=== PATIENT | female | born 1955 | race Caucasian/White ===

== ENCOUNTER 2023-02-20 11:34 | Inpatient (IN) | payer MEDICARE ==
[2023-02-20] MEDS ORDERED: HYDROmorphone 1 MG/ML 1 ML SYRINGE IVP STA ×2 (12:27→14:50)
--- NOTE | 2023-02-20 12:31 | ED ---
General Adult HPI - General Chief complaint: Back Pain/Injury Stated complaint: back pain Time Seen by Provider: 02/20/23 11:58 Source: patient, RN notes reviewed Mode of arrival: ambulatory Limitations: no limitations - History of Present Illness Initial comments: Patient is a pleasant 68-year-old female presenting to the emergency department with concerns with left upper flank/back pain. Onset of symptoms was 2 or 3 weeks ago. Patient finds it hard to get comfortable. Discomfort does increase with deep breaths. No cough or dyspnea. No history of similar symptoms. Superior no fever. No dysuria or hematuria. No constipation or diarrhea. No midline back pain. Patient does question if she pulled a muscle when she got out of the car at that point. - Related Data Allergies Allergy/AdvReac Type Severity Reaction Status Date / Time No Known Allergies Allergy Verified 02/20/23 11:46 Review of Systems ROS Statement: Those systems with pertinent positive or pertinent negative responses have been documented in the HPI. ROS Other: All systems not noted in ROS Statement are negative. Constitutional: Denies: fever Eyes: Denies: eye pain ENT: Denies: ear pain Respiratory: Denies: cough, dyspnea Cardiovascular: Denies: chest pain Endocrine: Denies: fatigue Gastrointestinal: Reports: abdominal pain (Left flank, upper) Musculoskeletal: Reports: as per HPI, back pain Skin: Denies: rash Neurological: Denies: weakness Past Medical History Past Medical History: No Reported History History of Any Multi-Drug Resistant Organisms: None Reported Past Surgical History: No Surgical Hx Reported Past Psychological History: No Psychological Hx Reported Smoking Status: Current some day smoker Past Alcohol Use History: Rare Past Drug Use History: None Reported General Exam Limitations: no limitations General appearance: alert, in no apparent distress Head exam: Present: normocephalic Eye exam: Present: normal appearance Neck exam: Present: normal inspection Respiratory exam: Present: normal lung sounds bilaterally Cardiovascular Exam: Present: regular rate, normal rhythm Expanded Peripheral pulses: 2+: Dorsalis Pedis (R), Dorsalis Pedis (L) GI/Abdominal exam: Present: soft, tenderness (Minimal tenderness left flank). Absent: distended Extremities exam: Present: normal inspection. Absent: pedal edema, calf te nderness Back exam: Present: CVA tenderness (L) Neurological exam: Present: alert Psychiatric exam: Present: normal affect, normal mood Skin exam: Present: normal color Course Vital Signs 02/20/23 02/20/23 11:44 14:58 Temperature 97.8 F Pulse Rate 107 H 80 Respiratory 18 18 Rate Blood Pressure 148/78 134/78 O2 Sat by Pulse 96 98 Oximetry Medical Decision Making - Medical Decision Making Was pt. sent in by a medical professional or institution ([facility], MSW, urgent care, hospital, or skilled nursing...) When possible be specific @ -No Did you speak to anyone other than the patient for history (EMS, parent, family, police, friend...)? What history was obtained from this source @ -Family is present and helps provide history including onset Did you review nursing and triage notes (agree or disagree)? Why? @ -I reviewed and agree with nursing and triage notes Were old charts reviewed (outside hosp., previous admission, EMS record, old EK G, old radiological studies, urgent care reports/EKG's, skilled nursing records)? Report findings @ -No old charts were reviewed Differential Diagnosis (chest pain, altered mental status, abdominal pain women, abdominal pain men, vaginal bleeding, weakness, fever, dyspnea, syncope, headache, dizziness, GI bleed, back pain, seizure, CVA, palpatations, mental health, musculoskeletal)? @ -Differential Dyspnea: Coronary syndrome, arrhythmia, tamponade, asthma, COPD, pulmonary embolism, pneumonia, pneumothorax, pulmonary effusion, anaphylaxis, diabetic ketoacidosis, flailed chest, pulmonary contusion, diaphragmatic rupture, anemia, neuromus cular, this is not meant to be an all-inclusive list. EKG interpreted by me (3pts min.). @ -As above X-rays interpreted by me (1pt min.). @ -Chest x-ray shows left effusion. CT interpreted by me (1pt min.). @ -Computed tomography scan shows large left effusion U/S interpreted by me (1pt. min.). @ -None done What testing was considered but not performed or refused? (CT, X-rays, U/S, labs)? Why? @ -None What meds were considered but not given or refused? Why? @ -None Did you discuss the management of the patient with other professionals (professionals i.e. WILL Wills, MSW, lab, RT, psych nurse, social services aide, watchguard, teacher, deck officer, case assembler)? Give summary @ -Case discussed with Dr. Dennis, who will admit covering hospital call. Was smoking cessation discussed for >3mins.? @ -No Was critical care preformed (if so, how long)? @ -32 meds critical care time. Were there social determinants of health that impacted care today? How? (Homelessness, low income, unemployed, alcoholism, drug addiction, transportation, low edu. Level, literacy, decrease access to med. care, [facility], rehab)? @ -No Was there de-escalation of care discussed even if they declined (Discuss DNR or withdrawal of care, Hospice)? DNR status @ -No What co-morbidities impacted this encounter? (DM, HTN, Smoking, COPD, CAD, Cancer, CVA, ARF, Chemo, Hep., AIDS, mental health diagnosis, sleep apnea, morbid obesity)? @ -None Was patient admitted / discharged? Hospital course, mention meds given and route, prescriptions, significant lab abnormalities, going to OR and other pertinent info. @ -Patient presents with left flank pain. Chest x-ray and CT concerning for large left effusion, uncertain etiology. There is potential for possible infection/pneumonia. SIRS criteria met. Blood culture and lactic acid have been ordered. IV antibiotics will be ordered. Patient will benefit from admission for pain control and pulmonary consult with probable thoracentesis. Undiagnosed new problem with uncertain prognosis? @ -No Drug Therapy requiring intensive monitoring for toxicity (Heparin, Nitro, Insulin, Cardizem)? @ -No Were any procedures done? @ -No Diagnosis/symptom? @ -Large left pleural effusion Acute, or Chronic, or Acute on Chronic? @ -Acute Uncomplicated (without systemic symptoms) or Complicated (systemic symptoms)? @ -default Side effects of treatment? @ -No Exacerbation, Progression, or Severe Exacerbation? @ -No Poses a threat to life or bodily function? How? (Chest pain, [place], [place], pneumonia, PE, COPD, DKA, ARF, appy, cholecystitis, CVA, Diverticulitis, Homicidal, Suicidal, threat to staff... and all critical care pts) @ -No - Lab Data Result diagrams: 02/20/23 12:52 02/20/23 13:46 Lab Results 02/20/23 02/20/23 02/20/23 Range/Units 12:52 12:52 13:46 WBC 39.9 H (3.8-10.6) k/uL RBC 4.55 (3.80-5.40) m/uL Hgb 13.2 (11.4-16.0) gm/dL Hct 40.5 (34.0-46.0) % MCV 89.0 (80.0-100.0) fL MCH 29.1 (25.0-35.0) pg MCHC 32.7 (31.0-37.0) g/dL RDW 12.8 (11.5-15.5) % Plt Count 767 H (150-450) k/uL MPV 8.2 Neutrophils % 94 % Lymphocytes % 3 % Monocytes % 2 % Eosinophils % 1 % Basophils % 0 % Neutrophils # 37.5 H (1.3-7.7) k/uL Lymphocytes # 1.1 (1.0-4.8) k/uL Monocytes # 0.6 (0-1.0) k/uL Eosinophils # 0.5 (0-0.7) k/uL Basophils # 0.0 (0-0.2) k/uL Manual Slide Review Performed PT 11.1 (10.0-12.5) sec INR 1.0 (<1.2) APTT 25.9 (22.0-30.0) sec D-Dimer 3.66 H (<0.60) mg/L FEU Sodium 136 L (137-145) mmol/L Potassium 3.8 (3.5-5.1) mmol/L Chloride 96 L (98-107) mmol/L Carbon Dioxide 23 (22-30) mmol/L Anion Gap 17 mmol/L BUN 18 H (7-17) mg/dL Creatinine 0.41 L (0.52-1.04) mg/dL Est GFR (CKD-EPI)AfAm >90 (>60 ml/min/1.73 sqM) Est GFR (CKD-EPI)NonAf >90 (>60 ml/min/1.73 sqM) Glucose 110 H (74-99) mg/dL Calcium 9.5 (8.4-10.2) mg/dL Total Bilirubin 0.7 (0.2-1.3) mg/dL AST 23 (14-36) U/L ALT 16 (4-34) U/L Alkaline Phosphatase 161 H (38-126) U/L Total Protein 6.9 (6.3-8.2) g/dL Albumin 3.5 (3.5-5.0) g/dL Amylase 43 (30-110) U/L Lipase 21 L (23-300) U/L Urine Color Urine Appearance (Clear) Urine pH (5.0-8.0) Ur Specific [place] (1.001-1.035) Urine Protein (Negative) Urine Glucose (UA) (Negative) Urine Ketones (Negative) Urine Blood (Negative) Urine Nitrite (Negative) Urine Bilirubin (Negative) Urine Urobilinogen (<2.0) mg/dL Ur Leukocyte Esterase (Negative) Urine RBC (0-5) /hpf Urine WBC (0-5) /hpf Ur Squamous Epith Cells (0-4) /hpf Hyaline Casts (0-2) /lpf Urine Mucus (None) /hpf 02/20/23 Range/Units 14:09 WBC (3.8-10.6) k/uL RBC (3.80-5.40) m/uL Hgb (11.4-16.0) gm/dL Hct (34.0-46.0) % MCV (80.0-100.0) fL MCH (25.0-35.0) pg MCHC (31.0-37.0) g/dL RDW (11.5-15.5) % Plt Count (150-450) k/uL MPV Neutrophils % % Lymphocytes % % Monocytes % % Eosinophils % % Basophils % % Neutrophils # (1.3-7.7) k/uL Lymphocytes # (1.0-4.8) k/uL Monocytes # (0-1.0) k/uL Eosinophils # (0-0.7) k/uL Basophils # (0-0.2) k/uL Manual Slide Review PT (10.0-12.5) sec INR (<1.2) APTT (22.0-30.0) sec D-Dimer (<0.60) mg/L FEU Sodium (137-145) mmol/L Potassium (3.5-5.1) mmol/L Chloride (98-107) mmol/L Carbon Dioxide (22-30) mmol/L Anion Gap mmol/L BUN (7-17) mg/dL Creatinine (0.52-1.04) mg/dL Est GFR (CKD-EPI)AfAm (>60 ml/min/1.73 sqM) Est GFR (CKD-EPI)NonAf (>60 ml/min/1.73 sqM) Glucose (74-99) mg/dL Calcium (8.4-10.2) mg/dL Total Bilirubin (0.2-1.3) mg/dL AST (14-36) U/L ALT (4-34) U/L Alkaline Phosphatase (38-126) U/L Total Protein (6.3-8.2) g/dL Albumin (3.5-5.0) g/dL Amylase (30-110) U/L Lipase (23-300) U/L Urine Color Dark Brown Urine Appearance Cloudy H (Clear) Urine pH 6.0 (5.0-8.0) Ur Specific [place] 1.050 H (1.001-1.035) Urine Protein 2+ H (Negative) Urine Glucose (UA) Negative (Negative) Urine Ketones 2+ H (Negative) Urine Blood Small H (Negative) Urine Nitrite Negative (Negative) Urine Bilirubin 1+ H (Negative) Urine Urobilinogen 8.0 (<2.0) mg/dL Ur Leukocyte Esterase Negative (Negative) Urine RBC 11 H (0-5) /hpf Urine WBC 6 H (0-5) /hpf Ur Squamous Epith Cells 2 (0-4) /hpf Hyaline Casts 22 H (0-2) /lpf Urine Mucus Many H (None) /hpf Critical Care Time Critical Care Time: Yes Total Critical Care Time: 32 Disposition Clinical Impression: Pleural effusion on left Disposition: ADMITTED IP TO THIS HOSP Condition: Serious Is patient prescribed a controlled substance at d/c from ED?: No Referrals: None,Stated [Primary Care Provider] - 1-2 days Time of Disposition: 16:30
[2023-02-20 13:05] LABS: Basophils % (A) 0 %; Eosinophils # (A) 0.5 k/uL (0-0.7); Eosinophils % (A) 1 %; HCT 40.5 % (34.0-46.0); HGB 13.2 gm/dL (11.4-16.0); Lymphocytes # (A) 1.1 k/uL (1.0-4.8); Lymphocytes % (A) 3 %; MCH 29.1 pg (25.0-35.0); MCHC 32.7 g/dL (31.0-37.0); Mean Platelet Volume 8.2; Monocytes # (A) 0.6 k/uL (0-1.0); Monocytes % (A) 2 %; Neutrophils # (A) 37.5 k/uL (1.3-7.7); Neutrophils % (A) 94 %; Platelet Count 767 k/uL (150-450); RBC 4.55 m/uL (3.80-5.40); RDW 12.8 % (11.5-15.5); WBC 39.9 k/uL (3.8-10.6)
--- NOTE | 2023-02-20 13:28 | XR ---
EXAMINATION TYPE: XR chest 2V DATE OF EXAM: 02/20/2023 COMPARISON: None HISTORY: 68-year-old female with abdominal pain TECHNIQUE: PA and lateral views FINDINGS: Suspected old left lateral seventh rib fracture deformity. However, there are prominent pleural paren chymal opacities throughout the left hemithorax including the medial and lateral upper lung and later al left base. Right lung and pleural space are relatively clear. Heart overall normal size. IMPRESSION: Extensive abnormal pleural parenchymal opacities throughout the left hemithorax, probable loculated o r complex moderate-sized pleural effusion. Underlying atelectasis and/or consolidation.
--- NOTE | 2023-02-20 13:32 | XR ---
EXAMINATION TYPE: XR KUB DATE OF EXAM: 02/20/2023 Comparison: None Clinical History: 68-year-old female abdominal pain Findings: No evidence for free intraperitoneal air. No dilated small bowel or air-fluid levels. No significant stool burden. The nonspecific calcifications in the right side of the pelvis, probably vascular and/or calcified ut erine fibroids. Impression: No evidence for free air or bowel obstruction. No significant stool burden.
[2023-02-20 13:56] LABS: Partial Thromboplastin Time 25.9 sec (22.0-30.0); Prothrombin Time 11.1 sec (10.0-12.5)
[2023-02-20 14:05] LABS: ALT 16 U/L (4-34); AST 23 U/L (14-36); African American GFR (CKD) >90 (>60 ml/min/1.73 sqM); Albumin 3.5 g/dL (3.5-5.0); Alkaline Phosphatase 161 U/L (38-126); Amylase 43 U/L (30-110); Anion Gap 17 mmol/L; Blood Urea Nitrogen 18 mg/dL (7-17); Calcium 9.5 mg/dL (8.4-10.2); Carbon Dioxide 23 mmol/L (22-30); Chloride 96 mmol/L (98-107); Glucose 110 mg/dL (74-99); Lipase 21 U/L (23-300); Non-African American GFR(CKD) >90 (>60 ml/min/1.73 sqM); Potassium 3.8 mmol/L (3.5-5.1); Sodium 136 mmol/L (137-145); Total Bilirubin 0.7 mg/dL (0.2-1.3); Total Protein 6.9 g/dL (6.3-8.2)
[2023-02-20 14:31] LABS: Appearance,Urine Cloudy (Clear); Bilirubin,Urine 1+ (Negative); Blood,Urine Small (Negative); Color,Urine Dark Brown; Glucose,Urine (UA) Negative (Negative); Hyaline Casts,Urine 22 /lpf (0-2); Ketones,Urine 2+ (Negative); Leukocyte Esterase,Urine Negative (Negative); Mucus,Urine Many /hpf; Nitrite,Urine Negative (Negative); Protein,Urine 2+ (Negative); RBC,Urine 11 /hpf (0-5); Squamous Epithelial Cell,Urine 2 /hpf (0-4); WBC,Urine 6 /hpf (0-5)
--- NOTE | 2023-02-20 15:42 | CT ---
EXAMINATION TYPE: CT angio chest DATE OF EXAM: 02/20/2023 COMPARISON: None HISTORY: 68-year-old female Lt side chest pain, elevated d-dimer TECHNIQUE: Contiguous axial scanning of the chest after the administration of 100 mL of Isovue 300. Coronal/sagittal MIP reconstructions performed. CT DLP: 745.1mGycm. Automatic exposure control utilized for a dose reduction. FINDINGS: The heart is normal size with trace pericardial fluid. No flattening of the interventricular septum o r reflux of contrast into the hepatic veins. Aorta normal caliber with mild sclerotic arch calcifications and bovine configuration to the aortic a rch. No thoracic lymphadenopathy identified. There is borderline adequate opacification of the pulmonary arterial system. Limitation due to breath ing motion especially on the left. No definite pulmonary embolus is seen. There is a large left pleural effusion. This results in left lower lobar collapse. Additional partial collapse of the inferior lingula. Prominent scalloped margins of the pleural effusion extending up to the apex suggests areas of partia l loculation. Minimal emphysematous change. Right lung and pleural space are clear. Abdomen reported separately. Bones: Mild degenerative disc disease midthoracic spine. IMPRESSION: 1. Borderline adequate contrast bolus. Further limitation due to motion especially on the left. No de finite pulmonary embolus. 2. Large left-sided pleural effusion causing complete left lower lobar collapse and near-complete sary gular collapse. 3. The effusion is complex with scalloped margins extending up to the apex suggesting areas of partia l loculation. 4. Background COPD with minimal emphysema. 5. Abdomen pelvis reported separately.
--- NOTE | 2023-02-20 15:48 | CT ---
EXAMINATION TYPE: CT abdomen pelvis w con DATE OF EXAM: 02/20/2023 COMPARISON: NONE HISTORY: 68-year-old female LT side pain TECHNIQUE: Contiguous axial scanning of the abdomen and pelvis following administration of 100 ml Omn ipaque 300 IV contrast. Delayed images through the kidneys and coronal/sagittal reconstructions perf ormed. CT DLP: 745.1 mGycm Automated exposure control for dose reduction was used. FINDINGS: Chest reported separately. On this phase of contrast, there may be some slight nodular pleu ral thickening along the posterior costophrenic angle. Underlying cyst versus focal fat anterior falciform ligament measuring 1.4 cm. No biliary ductal dila tation. Portal venous system is patent. Hydropic gallbladder 4.4 cm wide open without any surrounding inflammation. Likely due to fasting sta te. There is a nonspecific 2.0 cm right adrenal nodule. Mild thickening left adrenal gland without discre te nodularity. Tiny cortical renal cysts are noted. There is an indeterminate 9 mm partially exophytic cortical lesi on lateral midpole left kidney that could represent a complicated cyst or small solid mass and should be reassessed in a 6 month follow-up. Mild/moderate atherosclerotic calcifications infrarenal abdominal aorta and common iliac arteries. Sl ight fusiform dilatation infrarenal abdominal aorta to 2.1 cm but no nancy aneurysm. No dilated small bowel, free fluid, or free air. No mesenteric or retroperitoneal adenopathy. Scattered mild stool. Sigmoid diverticulosis. Wall thickening along the sigmoid colon but without any surrounding inflammation. Findings may reflect chronic diverticulitis. Bladder is nondistended. Uterus anteverted with a suspected 2.1 cm right fundal fibroid likely with a submucosal component. Subserosal exophytic partially calcified fibroid right fundus measuring 1.2 cm. Nonspecific calcifica tion right ovary measuring 1 cm, probably a phlebolith. Left ovary also visualized. No abnormal fluid collection in the pelvis or pelvic lymphadenopathy. Bones: Severe degenerative disc disease with sclerotic endplate change at L3-L5 levels and hypertroph ic facet arthropathy. There is moderate bilateral neuroforaminal stenosis at L4-L5. Also on the left at L3-L4. IMPRESSION: 1. CHEST REPORTED SEPARATELY. ON THIS PHASE OF CONTRAST IMAGING, THERE MAY BE SOME SUSPICIOUS NODULAR PLEURAL THICKENING AT THE LEFT POSTERIOR COSTOPHRENIC ANGLE. 2. Nonspecific 2 cm right adrenal nodule, statistically representing a benign adrenal adenoma. Six-mo [facility] follow-up CT with adrenal mass protocol recommended. 3. Indeterminate 9 mm cortical lesion lateral left kidney could represent a complicated cyst or a sma ll solid mass. This can also be reassessed at the six-month follow-up. 4. Sigmoid diverticulosis but with associated wall thickening. No surrounding inflammation. Suspect c hronic diverticulitis. 5. Fibroid uterus.
[2023-02-20] MEDS ORDERED: AZITHROMYCIN 500 MG in SODIUM CHLORIDE 0.9% 250 ML IVPB STA (16:30)
[2023-02-20] MEDS ORDERED: PNEUMONIA PROTOCOL UTILIZED 1 EACH MISC PO PRN (16:30)
[2023-02-20] MEDS ORDERED: HYDROmorphone 0.5 MG/0.5 ML SYRINGE IVP PRN (16:32)
[2023-02-20] MEDS: HYDROmorphone 1 MG/ML 1 ML SYRINGE IVP PRN ×2 (17:09→21:23)
[2023-02-20] MEDS: SODIUM CHLORIDE 0.9% 1,000 ML IV SCH (17:22)
[2023-02-21] MEDS: HYDROmorphone 1 MG/ML 1 ML SYRINGE IVP PRN ×5 (01:15→19:34)
--- NOTE | 2023-02-21 07:19 | XR ---
EXAMINATION TYPE: XR chest 1V DATE OF EXAM: 02/21/2023 5:44 AM CLINICAL INDICATION:Female, 68 years old with history of pneumonia; [facility] COMPARISON: Chest radiograph from one day prior. TECHNIQUE: XR chest 1V Frontal view of the chest. FINDINGS: Lungs/Pleura: Increased opacification of the left hemithorax most pronounced superiorly. There is loc ulated pleural effusion visualized. The right lung is relatively clear. Pulmonary vascularity: Unremarkable. Heart/mediastinum: Cardiomediastinal silhouette is partially obscured due to overlying and adjacent o pacities. Musculoskeletal: No acute osseous pathology. IMPRESSION: Loculated left pleural effusion with increased opacity in today's exam which could be partially due t o patient positioning.
[2023-02-21] MEDS: AZITHROMYCIN 500 MG TAB PO SCH (11:00)
--- NOTE | 2023-02-21 13:09 | P.HPIM ---
History of Present Illness H&P Date: 02/21/23 History of present illness; patient 78-year-old lady with no significant past m edical history was brought to the ER for left sided flank/back pain. Patient stated that she was all right 2-3 weeks back when he started noticing discomfort in the left flank region, there is also discomfort in the left side of her back. Patient initially thought that she might have pulled her muscle while getting out of the car. This discomfort was persistent. Patient also started noticing shortness of breath and was unable to take deep breaths. There was no complain of fever or chills. Patient denied any complaint of orthopnea or PND. There was no complain of swelling of feet. Patient denies any complaints of lethargy or weakness. Because of these symptoms, patient came to the ER Initial lab work done in the ER showed WBC 10.9, hemoglobin 13.2, platelet count 767, sodium 136, potassium 3.8, chloride 96, BUN 18, creatinine 0.41 glucose 110 AST 23, AST 16, UA done showed negative nitrite and leukocyte Estrace, urine WBC 6 EKG done in the ER showed heart rate of , no ST segment elevation or depression seen, no T-wave inversions seen. X-ray abdominal negative for evidence of free air or bowel obstruction Chest x-ray done in the ER showed extensive abnormal pleural parenchymal opacities throughout the left hemithorax probable loculated complex moderate sided pleural effusion. CTA chest done showed no PE, large left-sided pleural effusion. CT abdomen done showed nonspecific 2 cm right adrenal nodule. Indeterminate 9 mm cortical lesion left kidney could reflect a cyst versus mass Patient admitted to internal medicine service REVIEW OF SYSTEMS: CONSTITUTIONAL: No fever, no malaise, no fatigue. HEENT: No recent visual problems or hearing problems. Denied any sore throat. CARDIOVASCULAR: As mentioned in HPI PULMONARY: As mentioned in HPI GASTROINTESTINAL: No diarrhea, no nausea, no vomiting, no abdominal pain. NEUROLOGICAL: No headaches, no weakness, no numbness. HEMATOLOGICAL: Denies any bleeding or petechiae. GENITOURINARY: Denies any burning micturition, frequency, or urgency. MUSCULOSKELETAL/RHEUMATOLOGICAL: Denies any joint pain, swelling, or any muscle pain. ENDOCRINE: Denies any polyuria or polydipsia. The rest of the 14-point review of systems is negative. PHYSICAL EXAMINATION: GENERAL: The patient is alert and oriented x3, not in any acute distress. Well developed, well nourished. HEENT: Pupils are round and equally reacting to light. EOMI. No scleral icterus. No conjunctival pallor. Normocephalic, atraumatic. No pharyngeal erythema. No thyromegaly. CARDIOVASCULAR: S1 and S2 present. No murmurs, rubs, or gallops. PULMONARY: Diminished breath sounds at the left lung base, occasional crackles audible left-sided ABDOMEN: Soft, nontender, nondistended, normoactive bowel sounds. No palpable organomegaly. MUSCULOSKELETAL: No joint swelling or deformity. EXTREMITIES: No cyanosis, clubbing, or pedal edema. NEUROLOGICAL: Gross neurological examination did not reveal any focal deficits. SKIN: No rashes. Assessment and plan Bacterial pneumonia Large left pleural effusion 2 cm right adrenal nodule Indeterminate 9 mm cortical lesion left kidney Monitor vital signs Monitor CBC Monitor CMP Continue telemetry monitoring Follow-up on blood cultures Follow-up on sputum cultures Continue IV Rocephin and azithromycin Consult pulmonary Re: 2 cm right adrenal nodule needs outpatient six-month follow-up Re: Indeterminate 9 mm cortical lesion left kidney needs outpatient six-month follow-up Labs and medication were reviewed.. Continue same treatment. Continue with symptomatic treatment. Resume home medication. Monitor labs and vitals. DVT and GI prophylaxis. Further recommendations as per clinical course of the patient Dictation was produced using [employer] dictation software. please excuse any grammatical, word or spelling errors. Past Medical History Past Medical History: No Reported History History of Any Multi-Drug Resistant Organisms: None Reported Past Surgical History: No Surgical Hx Reported Past Psychological History: No Psychological Hx Reported Smoking Status: Current some day smoker Past Alcohol Use History: Rare Past Drug Use History: None Reported Medications and Allergies Home Medications Medication Instructions Recorded Confirmed Type No Known Home Medications 02/20/23 02/20/23 History Allergies Allergy/AdvReac Type Severity Reaction Status Date / Time No Known Allergies Allergy Verified 02/20/23 16:50 Physical Exam Vitals: Vital Signs Temp Pulse Pulse Resp BP BP Pulse Ox 02/21/23 07:30 97.9 F 102 H 18 151/63 94 L 02/21/23 05:41 110 H 24 138/90 92 L 02/21/23 01:46 100 18 129/73 93 L 02/20/23 22:31 78 18 139/72 90 L 02/20/23 22:00 18 91 L 02/20/23 21:19 98 18 139/90 90 L 02/20/23 14:58 80 18 134/78 98 02/20/23 11:44 97.8 F 107 H 18 148/78 96 Results CBC & Chem 7: 02/20/23 12:52 02/20/23 13:46 Labs: Abnormal Lab Results - Last 24 Hours (Table) 02/20/23 02/20/23 02/20/23 Range/Units 12:52 12:52 13:46 WBC 39.9 H (3.8-10.6) k/uL Plt Count 767 H (150-450) k/uL Neutrophils # 37.5 H (1.3-7.7) k/uL D-Dimer 3.66 H (<0.60) mg/L FEU Sodium 136 L (137-145) mmol/L Chloride 96 L (98-107) mmol/L BUN 18 H (7-17) mg/dL Creatinine 0.41 L (0.52-1.04) mg/dL Glucose 110 H (74-99) mg/dL Alkaline Phosphatase 161 H (38-126) U/L Lipase 21 L (23-300) U/L Urine Appearance (Clear) Ur Specific [place] (1.001-1.035) Urine Protein (Negative) Urine Ketones (Negative) Urine Blood (Negative) Urine Bilirubin (Negative) Urine RBC (0-5) /hpf Urine WBC (0-5) /hpf Hyaline Casts (0-2) /lpf Urine Mucus (None) /hpf 02/20/23 Range/Units 14:09 WBC (3.8-10.6) k/uL Plt Count (150-450) k/uL Neutrophils # (1.3-7.7) k/uL D-Dimer (<0.60) mg/L FEU Sodium (137-145) mmol/L Chloride (98-107) mmol/L BUN (7-17) mg/dL Creatinine (0.52-1.04) mg/dL Glucose (74-99) mg/dL Alkaline Phosphatase (38-126) U/L Lipase (23-300) U/L Urine Appearance Cloudy H (Clear) Ur Specific [place] 1.050 H (1.001-1.035) Urine Protein 2+ H (Negative) Urine Ketones 2+ H (Negative) Urine Blood Small H (Negative) Urine Bilirubin 1+ H (Negative) Urine RBC 11 H (0-5) /hpf Urine WBC 6 H (0-5) /hpf Hyaline Casts 22 H (0-2) /lpf Urine Mucus Many H (None) /hpf
--- NOTE | 2023-02-21 15:10 | P.CNPUL ---
History of Present Illness Consult date: 02/21/23 Reason for consult: pleural effusion History of present illness: Pleasant 68-year-old female patient, coming in with pain across her left chest a nd some shortness of breath. This started approximately 1 weeks ago. The patient was having significant amount of pain in her left lung especially when taking deep breaths, and the patient was taken anti-inflammatory medications and she was putting heat pads which wasn't relieving her pain. Ultimately, improving got severe and she decided to come into the hospital for further evaluation. She has no active fever. She has some sweats at nighttime and her appetite is been poor. No hemoptysis. No aspiration. No previous episodes of pneumonia. She isn't on off cigarette smoker and currently she is smoking approximately 1 pack of cigarettes a week. Prior to that she was smoking 2 packs a week and she quit approximately 20 years ago. Subsequently, she has been in a closet smoker. No nausea. No emesis. No abdominal pain. No altered mentation. No fall. No trauma to her chest.D-dimer is at 3.66, sodium is at 136, potassium levels at 3.8, BUN is at 80 with a creatinine of 0.4, the white cell count is 39 with a hemoglobin of 13.2. Legionella urine antigen is negative. Blood cultures are still pending for now. Computed tomography scan of the chest was done and the patient was found to have a large left-sided pleural effusion with complete lobar collapse of the left lower lobe and partial collapse of the lingular segment. This is a complex effusion with some loculation apically. There was background emphysema also. No evidence of any pulmonary embolism. The contrast administration was suboptimal and limited evaluation due to motion. CAT scan of the abdomen and pelvis was also done that showed a nonspecific 2 cm right adrenal nodule. 9 mm cortical lesion in the left kidney, sigmoid diverticulosis and fibroid uterus. Review of Systems Constitutional: Reports fatigue, Reports poor appetite, Reports weakness Eyes: denies as per HPI, denies blurred vision, denies bulging eye, denies decreased vision, denies diplopia, denies discharge, denies dry eye, denies irritation, denies itching, denies pain, denies photophobia, denies loss of peripheral vision, denies loss of vision, denies tunnel vision/blind spots Ears: deny: decreased hearing, ear discharge, earache, tinnitus Ears, nose, mouth and throat: Reports as per HPI Breasts: absent: as per HPI, change in shape, gynecomastia, masses, nipple discharge, pain, skin changes, swelling Cardiovascular: Reports as per HPI, Reports chest pain, Reports dyspnea on exertion Respiratory: Reports as per HPI Gastrointestinal: Reports as per HPI Genitourinary: Reports as per HPI Menstruation: Reports as per HPI Musculoskeletal: Reports as per HPI Musculoskeletal: absent: ankle pain, ankle stiffness, ankle swelling Integumentary: Reports as per HPI Neurological: Reports as per HPI Psychiatric: Reports as per HPI Endocrine: Reports as per HPI Hematologic/Lymphatic: Reports as per HPI Allergic/Immunologic: Reports as per HPI Past Medical History Past Medical History: No Reported History History of Any Multi-Drug Resistant Organisms: None Reported Past Surgical History: No Surgical Hx Reported Past Psychological History: No Psychological Hx Reported Smoking Status: Current some day smoker Past Alcohol Use History: Rare Past Drug Use History: None Reported Medications and Allergies Home Medications Medication Instructions Recorded Confirmed Type No Known Home Medications 02/20/23 02/20/23 History Allergies Allergy/AdvReac Type Severity Reaction Status Date / Time No Known Allergies Allergy Verified 02/20/23 16:50 Physical Exam Vitals: Vital Signs Temp Pulse Pulse Resp BP BP Pulse Ox 02/21/23 14:30 98.8 F 97 18 149/74 96 02/21/23 07:30 97.9 F 102 H 18 151/63 94 L 02/21/23 05:41 110 H 24 138/90 92 L 02/21/23 01:46 100 18 129/73 93 L 02/20/23 22:31 78 18 139/72 90 L 02/20/23 22:00 18 91 L 02/20/23 21:19 98 18 139/90 90 L Intake and Output 02/20/23 02/21/23 02/21/23 22:59 06:59 14:59 Other: # Voids 1 Weight 49.895 kg Gen. appearance the patient is calm and comfortable not in acute distress she is currently on oxygen at 2 L Head exam was generally normal. There was no scleral icterus or corneal arcus. Mucous membranes were moist. Neck was supple and without jugular venous distension, thyromegaly, or carotid bruits. Carotids were easily palpable bilaterally. There was no adenopathy. Lungs sounds are diminished in the right and absent on the left with dullness to percussion consistent with lower effusion Cardiac exam revealed the PMI to be normally situated and sized. The rhythm was regular and no extrasystoles were noted during several minutes of auscultation. The first and second heart sounds were normal and physiologic splitting of the second heart sound was noted. There were no murmurs, rubs, clicks, or gallops. Abdominal exam revealed normal bowel sounds. The abdomen was soft, non-tender, and without masses, organomegaly, or appreciable enlargement of the abdominal aorta. Examination of the extremities revealed easily palpable radial, femoral and pedal pulses. There was no cyanosis, clubbing or edema. Examination of the skin revealed no evidence of significant rashes, suspicious appearing nevi or other concerning lesions. Neurologically, the patient is awake and alert and the patient does not have any focal neurological deficit. Cranial nerves are essentially intact. Results - Laboratory Findings CBC and BMP: 02/20/23 12:52 02/20/23 13:46 PT/INR, D-dimer PT 11.1 sec (10.0-12.5) 02/20/23 12:52 INR 1.0 (<1.2) 02/20/23 12:52 D-Dimer 3.66 mg/L FEU (<0.60) H 02/20/23 12:52 Abnormal lab findings: Abnormal Labs 02/20/23 02/20/23 02/20/23 12:52 12:52 13:46 WBC 39.9 H Plt Count 767 H Neutrophils # 37.5 H D-Dimer 3.66 H Sodium 136 L Chloride 96 L BUN 18 H Creatinine 0.41 L Glucose 110 H Alkaline Phosphatase 161 H Lipase 21 L Urine Appearance Ur Specific [place] Urine Protein Urine Ketones Urine Blood Urine Bilirubin Urine RBC Urine WBC Hyaline Casts Urine Mucus 02/20/23 14:09 WBC Plt Count Neutrophils # D-Dimer Sodium Chloride BUN Creatinine Glucose Alkaline Phosphatase Lipase Urine Appearance Cloudy H Ur Specific [place] 1.050 H Urine Protein 2+ H Urine Ketones 2+ H Urine Blood Small H Urine Bilirubin 1+ H Urine RBC 11 H Urine WBC 6 H Hyaline Casts 22 H Urine Mucus Many H - Diagnostic Findings Chest x-ray: image reviewed CT scan - chest: image reviewed Assessment and Plan Plan: Large left-sided pleural effusion, complex with some cardiac ablation, likely parapneumonic in nature Left lung pneumonia clinically suspected with development of parapneumonic effusion, likely bacterial Chest pain secondary to above Shortness of breath secondary to above Acute hypoxic respiratory failure secondary to above currently on 2 L of oxygen by nasal cannula Leukocytosis secondary to above COPD History of smoking Diverticulosis [place] nodule, 2 cm, likely benign Plan Continue Rocephin and Zithromax Check pro calcitonin level We'll perform a diagnostic and therapeutic thoracentesis of the left lung We'll send the pleural fluid for analysis Pain control We'll continue to follow
--- NOTE | 2023-02-21 15:21 | P.PCN ---
Date of Procedure: 02/21/23 Preoperative Diagnosis: Left-sided pleural effusion Postoperative Diagnosis: Empyema suspected Procedure(s) Performed: Thoracentesis Anesthesia: local Surgeon: Radha Byers Estimated Blood Loss (ml): 0 Pathology: other Condition: stable Disposition: floor Operative Findings: A time out was performed and the chest x-ray was reviewed, the appropriate side was confirmed and marked. My hands were washed immediately prior to the procedure. I wore a surgical cap, mask with protective eyewear, sterile gown and sterile gloves throughout the procedure. The patient was prepped and draped in a sterile manner using chlorhexidine scrub after the appropriate level was percussed and confirmed by ultrasound. 1% lidocaine was used to anesthesize the skin, subcutaneous tissue, superior aspect of the rib periosteum and parietal pleura. A finder needle was then introduced over the superior aspect of the rib to locate the pleural fluid; 2colored fluid was aspirated at a depth of approximately 2 cm. A 10-blade scalpel was used to jaskaran the skin at the insertion site. The [id number] needle was then introduced through the skin incision into the pleural space using negative aspiration pressure and the red colometric indicator to confirm appropriate positioning of the needle. The thoracentesis catheter was then threaded without difficulty. 1.2 L of turbid colored fluid was removed without difficulty. The fluid was highly suspicious for empyema. The catheter was then removed. No immediate complications were noted during the procedure. A post-procedure chest x-ray is pending at the time of this note. The fluid will be sent for studies. Estimated blood loss is 0cc
--- NOTE | 2023-02-21 15:47 | XR ---
EXAMINATION TYPE: XR chest 1V DATE OF EXAM: 02/21/2023 3:32 PM CLINICAL INDICATION:Female, 68 years old with history of post thoracentesis; [facility] COMPARISON: Chest radiographs from 02/21/2023. TECHNIQUE: XR chest 1V Frontal view of the chest. FINDINGS: Lungs/Pleura: Decrease in left pleural effusion left midlung opacities remain. There is no evidence o f pleural effusion, focal consolidation, or pneumothorax. Pulmonary vascularity: Unremarkable. Heart/mediastinum: Cardiomediastinal silhouette is unremarkable. Musculoskeletal: No acute osseous pathology. Other findings: None IMPRESSION: Improved aeration of the left lung with persistent left midlung airspace opacities and left pleural e ffusion. The right lung is clear. No pneumothorax.
[2023-02-21] MEDS: SODIUM CHLORIDE 0.9% 1,000 ML IV SCH (17:05)
[2023-02-21 20:18] LABS: T. Protein, Body Fluid Source Pleural Fluid; Total Protein, Body Fluid >3600 mg/dL
[2023-02-21 20:29] LABS: LDH, Body Fluid Source Pleural Fluid
[2023-02-21 20:31] LABS: Glucose, BF Source Pleural Fluid; Glucose, Body Fluid <2 mg/dL
[2023-02-21 21:08] LABS: Appearance,BF Cloudy (Clear)
[2023-02-22] MEDS: HYDROmorphone 1 MG/ML 1 ML SYRINGE IVP PRN ×4 (02:22→20:21)
[2023-02-22] MEDS: AZITHROMYCIN 500 MG TAB PO SCH (09:19)
--- NOTE | 2023-02-22 13:07 | CT ---
EXAMINATION TYPE: CT chest wo con CT DLP: 131.80 mGycm, Automated exposure control for dose reduction was used. DATE OF EXAM: 02/22/2023 7:43 AM COMPARISON: CTA chest 02/20/2023 . CLINICAL INDICATION:Female, 68 years old with history of post thoracentesis follow up; [facility], Post Thor acentesis, follow up TECHNIQUE: Multiple axial images were obtained through the chest. Sagittal and coronal reformats were created for review. Contrast used: mL of (None if empty) Oral contrast used: (None if empty) FINDINGS: Exam is limited without IV contrast. Moderate to large loculated left-sided pleural fluid collection shows perhaps slight decrease in size but probably not significant. There are are a few small bubbles of gas seen within the effusion post thoracentesis, otherwise no significant pneumothorax is seen. There is redemonstration of compressive atelectasis and collapse involving almost the entire left low er lobe with air bronchograms present, and a significant portion of the left upper lobe. In the aerat ed lungs is no definite new infiltrate. Mild dependent atelectasis on the right without sizable pleur al effusion. Mediastinal structures, chest wall, osseous structures, upper abdomen show no significant interval ch aniket. Small volume pericardial fluid again seen. IMPRESSION: 1. Moderate to large loculated left-sided pleural fluid collection shows perhaps slight decrease in size versus 02/20/2023 CT, but probably not significant. 2. A few small bubbles of gas seen within the effusion postthoracentesis, otherwise no significant p neumothorax. 3. Redemonstration of compressive atelectasis and collapse involving almost the entire left lower lo be, and a significant portion of the left upper lobe.
--- NOTE | 2023-02-22 13:25 | P.PN ---
Subjective Progress Note Date: 02/22/23 patient 78-year-old lady with no significant past medical history was brought to the ER for left sided flank/back pain. Patient stated that she was all right 2-3 weeks back when he started noticing discomfort in the left flank region, there is also discomfort in the left side of her back. Patient initially thought that she might have pulled her muscle while getting out of the car. This discomfort was persistent. Patient also started noticing shortness of breath and was unable to take deep breaths. There was no complain of fever or chills. Patient denied any complaint of orthopnea or PND. There was no complain of swelling of feet. Patient denies any complaints of lethargy or weakness. Because of these symptoms, patient came to the ER Initial lab work done in the ER showed WBC 10.9, hemoglobin 13.2, platelet count 767, sodium 136, potassium 3.8, chloride 96, BUN 18, creatinine 0.41 glucose 110 AST 23, AST 16, UA done showed negative nitrite and leukocyte Estrace, urine WBC 6 EKG done in the ER showed heart rate of , no ST segment elevation or depression seen, no T-wave inversions seen. X-ray abdominal negative for evidence of free air or bowel obstruction Chest x-ray done in the ER showed extensive abnormal pleural parenchymal opacities throughout the left hemithorax probable loculated complex moderate sided pleural effusion. CTA chest done showed no PE, large left-sided pleural effusion. CT abdomen done showed nonspecific 2 cm right adrenal nodule. Indeterminate 9 mm cortical lesion left kidney could reflect a cyst versus mass Patient admitted to internal medicine service REVIEW OF SYSTEMS: CONSTITUTIONAL: No fever, no malaise,. CARDIOVASCULAR: No chest pain, no palpitations, no syncope. PULMONARY: No shortness of breath, no cough, GASTROINTESTINAL: No diarrhea, no nausea, no vomiting, no abdominal pain. NEUROLOGICAL: No headaches, no weakness, PHYSICAL EXAMINATION: GENERAL: The patient is alert and oriented x3, not in any acute distress. Well developed, well nourished. HEENT: Pupils are round and equally reacting to light. EOMI. No scleral icterus. No conjunctival pallor. Normocephalic, atraumatic. No pharyngeal erythema. No thyromegaly. CARDIOVASCULAR: S1 and S2 present. No murmurs, rubs, or gallops. PULMONARY: Diminished breath sounds at the left lung base, occasional crackles audible left-sided ABDOMEN: Soft, nontender, nondistended, normoactive bowel sounds. No palpable organomegaly. MUSCULOSKELETAL: No joint swelling or deformity. EXTREMITIES: No cyanosis, clubbing, or pedal edema. NEUROLOGICAL: Gross neurological examination did not reveal any focal deficits. SKIN: No rashes. Assessment and plan Bacterial pneumonia Empyema Large left pleural effusion 2 cm right adrenal nodule Indeterminate 9 mm cortical lesion left kidney Monitor vital signs Monitor CBC Monitor CMP Continue telemetry monitoring Follow-up on blood cultures Follow-up on sputum cultures Continue IV Rocephin and azithromycin Pulmonology evaluated the patient, status post thoracentesis of left side the removal of 1.2 L of fluid, cultures pending ID following IR consulted Re: 2 cm right adrenal nodule needs outpatient six-month follow-up Re: Indeterminate 9 mm cortical lesion left kidney needs outpatient six-month follow-up Labs and medication were reviewed.. Continue same treatment. Continue with symptomatic treatment. Resume home medication. Monitor labs and vitals. DVT and GI prophylaxis. Further recommendations as per clinical course of the patient Dictation was produced using [employer] dictation software. please excuse any grammatical, word or spelling errors. Objective - Vital Signs Vital signs: Vital Signs Temp 97.9 F 02/22/23 07:00 Pulse 91 02/22/23 07:00 Resp 18 02/22/23 07:00 BP 139/81 02/22/23 07:00 Pulse Ox 96 02/22/23 08:26 FiO2 Intake & Output 02/21/23 02/22/23 02/22/23 18:59 06:59 18:59 Weight 49.895 kg Other: # Voids 1 1 - Labs CBC & Chem 7: 02/20/23 12:52 02/20/23 13:46 Labs: Abnormal Lab Results - Last 24 Hours (Table) 02/21/23 Range/Units 15:21 Fluid Appearance Cloudy A (Clear) Microbiology - Last 24 Hours (Table) 02/20/23 17:15 Blood Culture - Preliminary Blood 02/20/23 17:00 Blood Culture - Preliminary Blood
--- NOTE | 2023-02-22 14:13 | P.PN ---
Subjective Progress Note Date: 02/22/23 Pleasant 68-year-old female patient, coming in with pain across her left chest and some shortness of breath. This started approximately 1 weeks ago. The patient was having significant amount of pain in her left lung especially when taking deep breaths, and the patient was taken anti-inflammatory medications and she was putting heat pads which wasn't relieving her pain. Ultimately, improving got severe and she decided to come into the hospital for further evaluation. She has no active fever. She has some sweats at nighttime and her appetite is been poor. No hemoptysis. No aspiration. No previous episodes of pneumonia. She isn't on off cigarette smoker and currently she is smoking approximately 1 pack of cigarettes a week. Prior to that she was smoking 2 packs a week and she quit approximately 20 years ago. Subsequently, she has been in a closet smoker. No nausea. No emesis. No abdominal pain. No altered mentation. No fall. No trauma to her chest.D-dimer is at 3.66, sodium is at 136, potassium levels at 3.8, BUN is at 80 with a creatinine of 0.4, the white cell count is 39 with a hemoglobin of 13.2. Legionella urine antigen is negative. Blood cultures are still pending for now. Computed tomography scan of the chest was done and the patient was found to have a large left-sided pleural effusion with complete lobar collapse of the left lower lobe and partial collapse of the lingular segment. This is a complex effusion with some loculation apically. There was background emphysema also. No evidence of any pulmonary embolism. The contrast administration was suboptimal and limited evaluation due to motion. CAT scan of the abdomen and pelvis was also done that showed a nonspecific 2 cm right adrenal nodule. 9 mm cortical lesion in the left kidney, sigmoid diverticulosis and fibroid uterus. On today's evaluation of 02/22/2023, the patient is much improved compared to yesterday. I performed a thoracentesis on her yesterday and I removed approximately 1.1 L of turbid cloudy fluid from the left lung. The patient's fluid is an exudate with elevated protein and elevated LDH. Is accompanied. Parapneumonic effusion. Fluid cytology still pending for now. Currently the patient is improved. At follow-up CAT scan of the chest was obtained and the patient shows interval decrease in left-sided pleural effusion. There is some residual left-sided pleural effusion and the left lung base which is somewhat operated and the patient may benefit from ultrasound-guided thoracentesis. As such, interventional radiology will be consulted. Clinically over the patient is improved. The patient continues to have some atelectatic changes in the left lung along with consolidation and the patient remains on broad-spectrum antibiotics. Follow up labs are still pending. Pleural fluid cultures also pending. Objective - Vital Signs Vital signs: Vital Signs Temp 97.9 F 02/22/23 07:00 Pulse 91 02/22/23 07:00 Resp 18 02/22/23 07:00 BP 139/81 02/22/23 07:00 Pulse Ox 96 02/22/23 08:26 FiO2 Intake & Output 02/21/23 02/22/23 02/22/23 18:59 06:59 18:59 Weight 49.895 kg Other: # Voids 1 1 - Exam Gen. appearance the patient is calm and comfortable not in acute distress she is currently on oxygen at 2 L Head exam was generally normal. There was no scleral icterus or corneal arcus. Mucous membranes were moist. Neck was supple and without jugular venous distension, thyromegaly, or carotid bruits. Carotids were easily palpable bilaterally. There was no adenopathy. Lungs sounds are diminished in the right and absent on the left with dullness to percussion consistent with lower effusion, and breath sounds are improved following thoracentesis was performed earlier. Cardiac exam revealed the PMI to be normally situated and sized. The rhythm was regular and no extrasystoles were noted during several minutes of auscultation. The first and second heart sounds were normal and physiologic splitting of the second heart sound was noted. There were no murmurs, rubs, clicks, or gallops. Abdominal exam revealed normal bowel sounds. The abdomen was soft, non-tender, and without masses, organomegaly, or appreciable enlargement of the abdominal aorta. Examination of the extremities revealed easily palpable radial, femoral and pedal pulses. There was no cyanosis, clubbing or edema. Examination of the skin revealed no evidence of significant rashes, suspicious appearing nevi or other concerning lesions. Neurologically, the patient is awake and alert and the patient does not have any focal neurological deficit. Cranial nerves are essentially intact. - Labs CBC & Chem 7: 02/20/23 12:52 12/25/23 13:46 Labs: Abnormal Lab Results - Last 24 Hours (Table) 02/21/23 Range/Units 15:21 Fluid Appearance Cloudy A (Clear) Microbiology - Last 24 Hours (Table) 02/21/23 15:21 Gram Stain - Preliminary Pleural Fluid 02/20/23 17:15 Blood Culture - Preliminary Blood 02/20/23 17:00 Blood Culture - Preliminary Blood Assessment and Plan Plan: Large left-sided pleural effusion, complex with some cardiac ablation, likely parapneumonic in nature, post thoracentesis with evacuation of 1.1 L of turbid exudate on the left lung, fluid cytology and cultures are still pending. Fo llow-up Of the Chest Shows Residual Pockets of Left-Sided Pleural Effusion Largest in the Left Lung Base. Patient Continues to Have Consolidation/Atelectasis of the Left Lung. Left lung pneumonia clinically suspected with development of parapneumonic effusion, likely bacterial Chest pain secondary to above, improved Shortness of breath secondary to above Acute hypoxic respiratory failure secondary to above currently on 2 L of oxygen by nasal cannula Leukocytosis secondary to above COPD History of smoking Diverticulosis [place] nodule, 2 cm, likely benign Plan Monitor the white cell count Awaiting pleural fluid cultures and cytology Interventional radiology to be consulted for another ultrasound-guided thoracentesis of the likely related pockets of fluid in the left lung base Continue Rocephin and Zithromax Pain control is improved considerably We'll continue to follow
--- NOTE | 2023-02-22 17:17 | P.CONS ---
History of Present Illness - Reason for Consult Consult date: 02/21/23 pneumonia/loculated effusion Requesting physician: Sergo Clark - Chief Complaint Left-sided chest pain shortness of breath x 3 weeks - History of Present Illness Patient is a 68-year-old female with no significant past medical history reported on the chart however the patient is a current everyday smoker did have significant history of smoking patient presenting to the hospital for evaluation of left-sided chest pain and increasing shortness of breath patient symptom has been getting worse for about 3 weeks and really worse over the last 1 week and get to the point that it was hard for her to take a deep breath patient describes the pain to be sharp intensity severe without any radiation the patient did have a mild cough which is dry in nature not bring up any sputum denies having any URI symptoms patient denies high-grade fever did have some chills with the symptoms the patient was evaluated on presentation to the hospital the patient was afebrile no fever has been recorded subsequently patient was mildly hypoxic with O2 sats of 90% on room air she is currently on 2 L nasal cannula oxygen patient did have a elevated white of 39.9 with a left shift creatinine was 0.41 liver exams are normal urine has been negative patient did have a CT angiogram of the chest that was negative for PE large left-sided effusion causing complete left lower lobe collapse and near complete lingular collapse there was a complex area in the apex suggestive of partial loculation patient also have CT of abdominal pelvis nonspecific right adrenal nodule left cortical lesion question of cyst versus solid mass patient was started on Rocephin and Zithromax infectious was consulted for further management of antibiotic therapy Review of Systems Positive point and negatives has been mentioned in the HPI, complete review of systems was performed and all other systems are negative Past Medical History Past Medical History: No Reported History History of Any Multi-Drug Resistant Organisms: None Reported Past Surgical History: No Surgical Hx Reported Past Psychological History: No Psychological Hx Reported Smoking Status: Current some day smoker Past Alcohol Use History: Rare Past Drug Use History: None Reported Medications and Allergies Home Medications Medication Instructions Recorded Confirmed Type Amoxic-Pot Clav 875-125Mg 1 tab PO Q12HR 14 Days #28 tab 02/25/23 Rx [Augmentin 875-125] Allergies Allergy/AdvReac Type Severity Reaction Status Date / Time No Known Allergies Allergy Verified 02/20/23 16:50 Physical Exam Vitals: Vital Signs Temp Pulse Pulse Resp BP BP Pulse Ox 02/21/23 07:30 97.9 F 102 H 18 151/63 94 L 02/21/23 05:41 110 H 24 138/90 92 L 02/21/23 01:46 100 18 129/73 93 L 02/20/23 22:31 78 18 139/72 90 L 02/20/23 22:00 18 91 L 02/20/23 21:19 98 18 139/90 90 L 02/20/23 14:58 80 18 134/78 98 02/20/23 11:44 97.8 F 107 H 18 148/78 96 GENERAL DESCRIPTION: Elderly female lying in bed, no distress. No tachypnea or accessory muscle of respiration use. HEENT: Shows Pallor , no scleral icterus. Oral mucous membrane is dry. No pharyngeal erythema or thrush NECK: Trachea central, no thyromegaly. LUNGS: Unlabored breathing. Decreased breath sound the base HEART: S1, S2, regular rate and rhythm. No loud murmur ABDOMEN: Soft, no tenderness , guarding or rigidity, no organomegaly EXTREMITIES: No edema of feet. SKIN: No rash, no masses palpable. NEUROLOGICAL: The patient is awake, alert, oriented x3, mood and affect normal. Results CBC & Chem 7: 02/25/23 11:35 02/24/23 06:00 Labs: Abnormal Lab Results - Last 24 Hours (Table) 02/20/23 02/20/23 02/20/23 Range/Units 12:52 12:52 13:46 WBC 39.9 H (3.8-10.6) k/uL Plt Count 767 H (150-450) k/uL Neutrophils # 37.5 H (1.3-7.7) k/uL D-Dimer 3.66 H (<0.60) mg/L FEU Sodium 136 L (137-145) mmol/L Chloride 96 L (98-107) mmol/L BUN 18 H (7-17) mg/dL Creatinine 0.41 L (0.52-1.04) mg/dL Glucose 110 H (74-99) mg/dL Alkaline Phosphatase 161 H (38-126) U/L Lipase 21 L (23-300) U/L Urine Appearance (Clear) Ur Specific [place] (1.001-1.035) Urine Protein (Negative) Urine Ketones (Negative) Urine Blood (Negative) Urine Bilirubin (Negative) Urine RBC (0-5) /hpf Urine WBC (0-5) /hpf Hyaline Casts (0-2) /lpf Urine Mucus (None) /hpf 02/20/23 Range/Units 14:09 WBC (3.8-10.6) k/uL Plt Count (150-450) k/uL Neutrophils # (1.3-7.7) k/uL D-Dimer (<0.60) mg/L FEU Sodium (137-145) mmol/L Chloride (98-107) mmol/L BUN (7-17) mg/dL Creatinine (0.52-1.04) mg/dL Glucose (74-99) mg/dL Alkaline Phosphatase (38-126) U/L Lipase (23-300) U/L Urine Appearance Cloudy H (Clear) Ur Specific [place] 1.050 H (1.001-1.035) Urine Protein 2+ H (Negative) Urine Ketones 2+ H (Negative) Urine Blood Small H (Negative) Urine Bilirubin 1+ H (Negative) Urine RBC 11 H (0-5) /hpf Urine WBC 6 H (0-5) /hpf Hyaline Casts 22 H (0-2) /lpf Urine Mucus Many H (None) /hpf Assessment and Plan (1) Leukocytosis Status: Acute Code(s): D72.829 - ELEVATED WHITE BLOOD CELL COUNT, UNSPECIFIED SNOMED Code(s): 880353293 (2) Parapneumonic effusion Status: Acute Code(s): J18.9 - PNEUMONIA, UNSPECIFIED ORGANISM; J91.8 - PLEURAL EFFUSION IN OTHER CONDITIONS CLASSIFIED ELSEWHERE SNOMED Code(s): 66139436 (3) Pleural effusion on left Status: Acute Code(s): J90 - PLEURAL EFFUSION, NOT ELSEWHERE CLASSIFIED SNOMED Code(s): 26574589 Plan: 1patient was in the hospital with left-sided chest pain increasing shortness of breath and this patient noticed to have a significant effusion to the left lower chest and evidence of compressive atelectasis versus consolidation patient did have elevated white count but not running any fever and no significant cough or sputum production high clinical suspicion for possible malignancy underlying pneumonia and parapneumonic effusion less likely but not entirely excluded 2await pulmonary evaluation for thoracocentesis fluid should be sent for analysis and culture 3we will check inflammatory markers 4continue with Rocephin and Zithromax Multiple questions concern were answered in layman terms We will follow on clinical condition and cultures to further adjust medication if needed Thank you for this consultation we will follow the patient along with you Dictation was produced using [employer] dictation software. please excuse any grammatical, word or spelling errors. Time with Patient: Greater than 30
--- NOTE | 2023-02-22 17:21 | P.PN ---
Subjective Progress Note Date: 02/22/23 Principal diagnosis: Reason for follow-up is left-sided effusion elevated white count Patient is a 68-year female presented to hospital with increasing shortness of breath and left-sided chest pain noticed to have a large left-sided effusion status post thoracocentesis also have elevated white count. On today's evaluation that is 02/22/2023, the patient denies having any fever or any chills patient is breathing more comfortably today and the left-sided chest pain has decreased in intensity, patient denies any nausea vomiting no abdominal pain no diarrhea. No CBC was done today patient did have a little fluid mostly bloody with a white count of 16,880 mostly PMN cultures are currently pending Objective - Vital Signs Vital signs: Vital Signs Temp 98.1 F 02/22/23 14:41 Pulse 96 02/22/23 14:41 Resp 18 02/22/23 14:41 BP 133/88 02/22/23 14:41 Pulse Ox 95 02/22/23 14:41 FiO2 Intake & Output 02/21/23 02/22/23 02/22/23 18:59 06:59 18:59 Intake Total 118 Balance 118 Weight 49.895 kg Intake: Oral 118 Other: # Voids 1 1 1 - Exam GENERAL DESCRIPTION: An elderly female lying in bed in no distress RESPIRATORY SYSTEM: Unlabored breathing , decreased breath sounds at bases HEART: S1 S2 regular rate and rhythm , ABDOMEN: Soft , no tenderness EXTREMITIES: No edema feet - Labs CBC & Chem 7: 02/20/23 12:52 02/20/23 13:46 Labs: Abnormal Lab Results - Last 24 Hours (Table) 02/21/23 Range/Units 15:21 Fluid Appearance Cloudy A (Clear) Microbiology - Last 24 Hours (Table) 02/21/23 15:21 Gram Stain - Preliminary Pleural Fluid 02/20/23 17:15 Blood Culture - Preliminary Blood 02/20/23 17:00 Blood Culture - Preliminary Blood Assessment and Plan (1) Leukocytosis Current Visit: Yes Status: Acute Code(s): D72.829 - ELEVATED WHITE BLOOD CELL COUNT, UNSPECIFIED SNOMED Code(s): 591108200 (2) Pleural effusion on left Current Visit: Yes Status: Acute Code(s): J90 - PLEURAL EFFUSION, NOT ELSEWHERE CLASSIFIED SNOMED Code(s): 95510368 Plan: 1patient was in the hospital with left-sided chest pain increasing shortness of breath and this patient noticed to have a significant effusion to the left lower chest and evidence of compressive atelectasis versus consolidation patient did have elevated white count but not running any fever and no significant cough or sputum production high clinical suspicion for possible malignancy underlying pneumonia and parapneumonic effusion less likely but not entirely excluded 2the patient status post thoracocentesis fluid did have a elevated white count mostly PMN with a cultures currently pending 3continue the patient on Rocephin while waiting for the culture to finalize and monitor clinical course closely Dictation was produced using [employer] dictation software. please excuse any grammatical, word or spelling errors. Time with Patient: Less than 30
[2023-02-22] MEDS: SODIUM CHLORIDE 0.9% 1,000 ML IV SCH (17:29)
[2023-02-23] MEDS: HYDROmorphone 1 MG/ML 1 ML SYRINGE IVP PRN ×5 (04:02→20:20)
[2023-02-23 08:47] LABS: Blood Urea Nitrogen 5.4 mg/dL (9.0-27.0); Chloride 98 mmol/L (96-109); Glucose 98 mg/dL (70-110); Potassium 3.7 mmol/L (3.5-5.5); Sodium 137 mmol/L (135-145)
[2023-02-23 08:48] LABS: ALT 10 U/L (8-44); AST 15 U/L (13-35); Albumin 2.8 g/dL (3.8-4.9); Albumin/Globulin Ratio 1.12 Ratio (1.60-3.17); Alkaline Phosphatase 133 U/L (41-126); Calcium 8.7 mg/dL (8.7-10.3); Carbon Dioxide 24.9 mmol/L (21.6-31.8); Globulin 2.5 g/dL (1.6-3.3); Total Bilirubin <0.2 mg/dL (0.3-1.2); Total Protein 5.3 g/dL (6.2-8.2)
--- NOTE | 2023-02-23 10:12 | US ---
EXAMINATION TYPE: US chest DATE OF EXAM: 02/23/2023 COMPARISON: CT, XR CLINICAL INDICATION: Female, 68 years old with history of please assess for left side fluid pocket; L eft pleural effusion TECHNIQUE: Targeted ultrasound of the posterior lower left hemithorax EXAM MEASUREMENTS: Left Pleural Effusion pocket size: 5.7 cm. Fluid appears loculated, internal echoes seen. Left skin surface to fluid distance: 3.3 cm Right side NOT marked for possible thoracentesis outside the dept. Left side marked for possible thoracentesis outside the dept. Fluid appears loculated. Pulmonologists are able to review the images in the patient?s EMR. IMPRESSIONS: Left side marked for possible thoracentesis with loculated fluid collection.
[2023-02-23 10:17] LABS: Basophils # (A) 0.05 X 10*3/uL (0.00-0.10); Basophils % (A) 0.2 %; Eosinophils # (A) 0.05 X 10*3/uL (0.04-0.35); Eosinophils % (A) 0.2 %; HCT 33.3 % (37.2-46.3); HGB 10.6 g/dL (12.0-15.0); Lymphocytes # (A) 1.17 X 10*3/uL (0.90-5.00); Lymphocytes % (A) 5.6 %; MCH 28.5 pg (27.0-32.0); MCHC 31.8 g/dL (32.0-37.0); MCV 89.5 FL (80.0-97.0); Mean Platelet Volume 10.6 FL (9.5-12.2); Monocytes # (A) 1.28 X 10*3/uL (0.20-1.00); Monocytes % (A) 6.2 %; NRBC Per 100 WBC 0 X 10*3/uL (0.00-0.01); Neutrophils # (A) 17.97 X 10*3/uL (1.80-7.70); Neutrophils % (A) 86.5 %; Platelet Count 772 X 10*3/uL (140-440); RBC 3.72 X 10*6/uL (4.10-5.20); RDW 13.8 % (11.5-14.5)
--- NOTE | 2023-02-23 12:39 | P.PN ---
Subjective Progress Note Date: 02/23/23 patient 78-year-old lady with no significant past medical history was brought to the ER for left sided flank/back pain. Patient stated that she was all right 2-3 weeks back when he started noticing discomfort in the left flank region, there is also discomfort in the left side of her back. Patient initially thought that she might have pulled her muscle while getting out of the car. This discomfort was persistent. Patient also started noticing shortness of breath and was unable to take deep breaths. There was no complain of fever or chills. Patient denied any complaint of orthopnea or PND. There was no complain of swelling of feet. Patient denies any complaints of lethargy or weakness. Because of these symptoms, patient came to the ER Initial lab work done in the ER showed WBC 10.9, hemoglobin 13.2, platelet count 767, sodium 136, potassium 3.8, chloride 96, BUN 18, creatinine 0.41 glucose 110 AST 23, AST 16, UA done showed negative nitrite and leukocyte Estrace, urine WBC 6 EKG done in the ER showed heart rate of , no ST segment elevation or depression seen, no T-wave inversions seen. X-ray abdominal negative for evidence of free air or bowel obstruction Chest x-ray done in the ER showed extensive abnormal pleural parenchymal opacities throughout the left hemithorax probable loculated complex moderate sided pleural effusion. CTA chest done showed no PE, large left-sided pleural effusion. CT abdomen done showed nonspecific 2 cm right adrenal nodule. Indeterminate 9 mm cortical lesion left kidney could reflect a cyst versus mass Patient admitted to internal medicine service 02/23. Patient seen and examined. Status post thoracentesis on 02/21 on left side with removal of 1.2 L of fluid,. States she feels much better. Back pain has improved. Able to take deeper breaths. IR has been consulted for further thoracentesis of left side REVIEW OF SYSTEMS: CONSTITUTIONAL: No fever, no malaise,. CARDIOVASCULAR: No chest pain, no palpitations, no syncope. PULMONARY: As mentioned above GASTROINTESTINAL: No diarrhea, no nausea, no vomiting, no abdominal pain. NEUROLOGICAL: No headaches, no weakness, PHYSICAL EXAMINATION: GENERAL: The patient is alert and oriented x3, not in any acute distress. Well developed, well nourished. HEENT: Pupils are round and equally reacting to light. EOMI. No scleral icterus. No conjunctival pallor. Normocephalic, atraumatic. No pharyngeal erythema. No thyromegaly. CARDIOVASCULAR: S1 and S2 present. No murmurs, rubs, or gallops. PULMONARY: Diminished breath sounds at the left lung base, occasional crackles audible left-sided ABDOMEN: Soft, nontender, nondistended, normoactive bowel sounds. No palpable organomegaly. MUSCULOSKELETAL: No joint swelling or deformity. EXTREMITIES: No cyanosis, clubbing, or pedal edema. NEUROLOGICAL: Gross neurological examination did not reveal any focal deficits. SKIN: No rashes. Assessment and plan Bacterial pneumonia Empyema Left parapneumonic effusion 2 cm right adrenal nodule Indeterminate 9 mm cortical lesion left kidney Monitor vital signs Monitor CBC Monitor CMP Continue telemetry monitoring Follow-up on blood cultures Follow-up on sputum cultures Continue IV Rocephin , completed course of azithromycin status post thoracentesis of left side the removal of 1.2 L of fluid, on 02/21 per pulmonary cultures pending ID following IR consulted, planning to repeat thoracentesis for loculated pleural effusion Re: 2 cm right adrenal nodule needs outpatient six-month follow-up Re: Indeterminate 9 mm cortical lesion left kidney needs outpatient six-month follow-up Labs and medication were reviewed.. Continue same treatment. Continue with sy mptomatic treatment. Resume home medication. Monitor labs and vitals. DVT and GI prophylaxis. Further recommendations as per clinical course of the patient Dictation was produced using [employer] dictation software. please excuse any grammatical, word or spelling errors. Objective - Vital Signs Vital signs: Vital Signs Temp 97.9 F 02/23/23 07:10 Pulse 90 02/23/23 08:00 Resp 17 02/23/23 08:00 BP 131/73 02/23/23 07:10 Pulse Ox 93 L 02/23/23 08:23 FiO2 Intake & Output 02/22/23 02/23/23 02/23/23 18:59 06:59 18:59 Intake Total 118 118 Balance 118 118 Intake: Oral 118 118 Other: Voiding Method Bedside Commode # Voids 1 2 - Labs CBC & Chem 7: 02/23/23 04:16 02/23/23 04:16 Labs: Abnormal Lab Results - Last 24 Hours (Table) 02/23/23 02/23/23 02/23/23 Range/Units 04:16 04:16 04:16 WBC 20.80 H (4.50-10.00) X 10*3/uL RBC 3.72 L (4.10-5.20) X 10*6/uL Hgb 10.6 L (12.0-15.0) g/dL Hct 33.3 L (37.2-46.3) % MCHC 31.8 L (32.0-37.0) g/dL Plt Count 772 H (140-440) X 10*3/uL Immature Gran # 0.28 H (0.00-0.04) X 10*3/uL Neutrophils # 17.97 H (1.80-7.70) X 10*3/uL Monocytes # 1.28 H (0.20-1.00) X 10*3/uL Anion Gap 14.10 H (4.00-12.00) mmol/L BUN 5.4 L (9.0-27.0) mg/dL Creatinine 0.3 L (0.6-1.5) mg/dL Total Bilirubin <0.2 L (0.3-1.2) mg/dL Alkaline Phosphatase 133 H (41-126) U/L C-Reactive Protein 30.50 H (0.00-0.80) mg/dL Total Protein 5.3 L (6.2-8.2) g/dL Albumin 2.8 L (3.8-4.9) g/dL Albumin/Globulin Ratio 1.12 L (1.60-3.17) Ratio Procalcitonin 1.53 H (0.02-0.09) ng/mL Microbiology - Last 24 Hours (Table) 02/20/23 17:15 Blood Culture - Preliminary Blood 02/20/23 17:00 Blood Culture - Preliminary Blood 02/21/23 15:21 Acid Fast Bacilli Smear - Preliminary Pleural Fluid 02/21/23 15:21 Gram Stain - Preliminary Pleural Fluid Body Fluid Culture - Preliminary
--- NOTE | 2023-02-23 15:23 | P.PN ---
Subjective Progress Note Date: 02/23/23 Pleasant 68-year-old female patient, coming in with pain across her left chest and some shortness of breath. This started approximately 1 weeks ago. The patient was having significant amount of pain in her left lung especially when taking deep breaths, and the patient was taken anti-inflammatory medications and she was putting heat pads which wasn't relieving her pain. Ultimately, improving got severe and she decided to come into the hospital for further evaluation. She has no active fever. She has some sweats at nighttime and her appetite is been poor. No hemoptysis. No aspiration. No previous episodes of pneumonia. She isn't on off cigarette smoker and currently she is smoking approximately 1 pack of cigarettes a week. Prior to that she was smoking 2 packs a week and she quit approximately 20 years ago. Subsequently, she has been in a closet smoker. No nausea. No emesis. No abdominal pain. No altered mentation. No fall. No trauma to her chest.D-dimer is at 3.66, sodium is at 136, potassium levels at 3.8, BUN is at 80 with a creatinine of 0.4, the white cell count is 39 with a hemoglobin of 13.2. Legionella urine antigen is negative. Blood cultures are still pending for now. Computed tomography scan of the chest was done and the patient was found to have a large left-sided pleural effusion with complete lobar collapse of the left lower lobe and partial collapse of the lingular segment. This is a complex effusion with some loculation apically. There was background emphysema also. No evidence of any pulmonary embolism. The contrast administration was suboptimal and limited evaluation due to motion. CAT scan of the abdomen and pelvis was also done that showed a nonspecific 2 cm right adrenal nodule. 9 mm cortical lesion in the left kidney, sigmoid diverticulosis and fibroid uterus. On today's evaluation of 02/22/2023, the patient is much improved compared to yesterday. I performed a thoracentesis on her yesterday and I removed approximately 1.1 L of turbid cloudy fluid from the left lung. The patient's fluid is an exudate with elevated protein and elevated LDH. Is accompanied. Parapneumonic effusion. Fluid cytology still pending for now. Currently the patient is improved. At follow-up CAT scan of the chest was obtained and the patient shows interval decrease in left-sided pleural effusion. There is some residual left-sided pleural effusion and the left lung base which is somewhat operated and the patient may benefit from ultrasound-guided thoracentesis. As such, interventional radiology will be consulted. Clinically over the patient is improved. The patient continues to have some atelectatic changes in the left lung along with consolidation and the patient remains on broad-spectrum antibiotics. Follow up labs are still pending. Pleural fluid cultures also pending. On today's evaluation of 02/15/2023, the patient is doing extremely well. As mentioned, there is a residual left-sided pleural effusion ultrasound marking was done and the patient is going to undergo an ultrasound-guided thoracentesis by interventional radiology today. Cultures from the pleural fluid was negative. The patient white cell count is down to 20.8. Hemoglobin is at 10.6. Electrodes are within normal limits and normal renal function. Pro-calcitonin level is at 1.53. She has no other new complaints patient remains on oxygen 2 L/m nasal cannula. She is afebrile and she is also hemodynamically stable. Objective - Vital Signs Vital signs: Vital Signs Temp 98.4 F 02/23/23 14:10 Pulse 91 02/23/23 14:59 Resp 16 02/23/23 14:59 BP 133/61 02/23/23 14:59 Pulse Ox 96 02/23/23 14:59 FiO2 Intake & Output 02/22/23 02/23/23 02/23/23 18:59 06:59 18:59 Intake Total 118 118 Balance 118 118 Intake: Oral 118 118 Other: Voiding Method Bedside Commode # Voids 1 2 3 - Exam Gen. appearance the patient is calm and comfortable not in acute distress she is currently on oxygen at 2 L Head exam was generally normal. There was no scleral icterus or corneal arcus. Mucous membranes were moist. Neck was supple and without jugular venous distension, thyromegaly, or carotid bruits. Carotids were easily palpable bilaterally. There was no adenopathy. Lungs sounds are diminished in the right and absent on the left with dullness to percussion consistent with lower effusion, and breath sounds are improved following thoracentesis was performed earlier. Cardiac exam revealed the PMI to be normally situated and sized. The rhythm was regular and no extrasystoles were noted during several minutes of auscultation. The first and second heart sounds were normal and physiologic splitting of the second heart sound was noted. There were no murmurs, rubs, clicks, or gallops. Abdominal exam revealed normal bowel sounds. The abdomen was soft, non-tender, and without masses, organomegaly, or appreciable enlargement of the abdominal aorta. Examination of the extremities revealed easily palpable radial, femoral and pedal pulses. There was no cyanosis, clubbing or edema. Examination of the skin revealed no evidence of significant rashes, suspicious appearing nevi or other concerning lesions. Neurologically, the patient is awake and alert and the patient does not have any focal neurological deficit. Cranial nerves are essentially intact. - Labs CBC & Chem 7: 02/23/23 04:16 02/23/23 04:16 Labs: Abnormal Lab Results - Last 24 Hours (Table) 02/23/23 02/23/23 02/23/23 Range/Units 04:16 04:16 04:16 WBC 20.80 H (4.50-10.00) X 10*3/uL RBC 3.72 L (4.10-5.20) X 10*6/uL Hgb 10.6 L (12.0-15.0) g/dL Hct 33.3 L (37.2-46.3) % MCHC 31.8 L (32.0-37.0) g/dL Plt Count 772 H (140-440) X 10*3/uL Immature Gran # 0.28 H (0.00-0.04) X 10*3/uL Neutrophils # 17.97 H (1.80-7.70) X 10*3/uL Monocytes # 1.28 H (0.20-1.00) X 10*3/uL Anion Gap 14.10 H (4.00-12.00) mmol/L BUN 5.4 L (9.0-27.0) mg/dL Creatinine 0.3 L (0.6-1.5) mg/dL Total Bilirubin <0.2 L (0.3-1.2) mg/dL Alkaline Phosphatase 133 H (41-126) U/L C-Reactive Protein 30.50 H (0.00-0.80) mg/dL Total Protein 5.3 L (6.2-8.2) g/dL Albumin 2.8 L (3.8-4.9) g/dL Albumin/Globulin Ratio 1.12 L (1.60-3.17) Ratio Procalcitonin 1.53 H (0.02-0.09) ng/mL Microbiology - Last 24 Hours (Table) 02/20/23 17:15 Blood Culture - Preliminary Blood 02/20/23 17:00 Blood Culture - Preliminary Blood 02/21/23 15:21 Acid Fast Bacilli Smear - Preliminary Pleural Fluid 02/21/23 15:21 Gram Stain - Preliminary Pleural Fluid Body Fluid Culture - Preliminary Assessment and Plan Plan: Large left-sided pleural effusion, complex with some cardiac ablation, likely parapneumonic in nature, post thoracentesis with evacuation of 1.1 L of turbid exudate on the left lung, fluid cytology and cultures are still pending. Follow-up Of the Chest Shows Residual Pockets of Left-Sided Pleural Effusion Largest in the Left Lung Base. Patient Continues to Have Consolidation/Atelectasis of the Left Lung. Ultrasound marking of the residual pleural fluid was done and the patient is going to undergo an interventional radiology ultrasound-guided thoracentesis of the left lung today to evacuate the rest of the pleural effusion. Left lung pneumonia clinically suspected with development of parapneumonic effusion, likely bacterial, pro-calcitonin level was elevated Acute hypoxic respiratory failure currently on 2 L Chest pain secondary to above, improved Shortness of breath secondary to above Acute hypoxic respiratory failure secondary to above currently on 2 L of oxygen by nasal cannula Leukocytosis secondary to above, improving COPD History of smoking Diverticulosis Adrenal nodule, 2 cm, likely benign Plan Monitor the white cell count, improving for now Awaiting pleural fluid cultures and cytology, negative for now Interventional radiology to be consulted for another ultrasound-guided thoracentesis of the likely related pockets of fluid in the left lung base, this is to be done today Continue Rocephin and Zithromax Pain control is improved considerably We'll continue to follow
--- NOTE | 2023-02-23 15:24 | US ---
EXAMINATION TYPE: US thoracentesis DATE OF EXAM: 02/23/2023 3:14 PM CLINICAL INDICATION:Female, 68 years old with history of pleural effusion. COMPARISON: 02/22/2023, 02/21/2023. ATTENDING: Dr. Jose L Lipscomb PROCEDURE: Informed consent was obtained. The risks of the procedure were extensively explained incl uding risk of pneumothorax and need for chest tube placement. Procedure was performed in the Ultraso und procedure suite. Ultrasound imaging of the chest demonstrates right pleural effusion. An approp riate access site was localized to the posterior right pleural space. Timeout was taken per protocol. The skin was prepped and draped in the usual sterile fashion and then locally anesthetized with 1% lidocaine. The pleural cavity was then accessed via a 5-Georgian one-step needle/catheter. Approximat марина 100 cc of clear straw-colored fluid was obtained. Postprocedural imaging of the chest demonstrate a decreased amount of pleural fluid. Patient tolerated procedure well without immediate complication. Hemostasis at the procedural site w as obtained with a sterile bandage placed. Immediate following the procedure, an inspiratory and expi ratory chest x-ray was reviewed. No post procedure pneumothorax was identified. The patient was monit ored in the holding area for approximately one hour following the procedure and was subsequently disc harged in stable condition. IMPRESSION: Ultrasound guided thoracentesis, with approximately 100 cc of clear straw-colored fluid drained. No immediate complications were evident.
--- NOTE | 2023-02-23 15:31 | XR ---
EXAMINATION TYPE: XR chest 1V portable DATE OF EXAM: 02/23/2023 Comparison: 02/21/2023 Clinical History: 68-year-old female post left thoracentesis Findings: Loculated moderate-sized left pleural effusion appears similar or slightly larger compared to 023. No appreciable pneumothorax. Patchy underlying opacity left mid and lower lung remains. Right kvng ng and pleural space clear. Some pleural fluid loculation along the medial left upper lobe as well, s imilar. Impression: Moderate loculated pleural effusion on the left similar to minimally increased from 02/21/2023. Under lying patchy atelectasis and/or consolidation left mid and lower lung redemonstrated. No appreciable pneumothorax.
--- NOTE | 2023-02-23 16:46 | P.PN ---
Subjective Progress Note Date: 02/23/23 Principal diagnosis: Reason for follow-up is left-sided effusion elevated white count Patient is a 68-year female presented to hospital with increasing shortness of breath and left-sided chest pain noticed to have a large left-sided effusion status post thoracocentesis also have elevated white count. On today's evaluation that is 02/23/2023 the patient remains to be afebrile, the patient is breathing comfortably on 2 L nasal cannula oxygen patient left-sided chest pain has decreased in intensity denies any worsening cough or sputum production no nausea vomiting and no diarrhea. The patient white count is down to 20.80 creatinine 0.3 pleural fluid cultures currently pending Objective - Vital Signs Vital signs: Vital Signs Temp 97.9 F 02/23/23 07:10 Pulse 90 02/23/23 08:00 Resp 17 02/23/23 08:00 BP 131/73 02/23/23 07:10 Pulse Ox 93 L 02/23/23 08:23 FiO2 Intake & Output 02/22/23 02/23/23 02/23/23 18:59 06:59 18:59 Intake Total 118 118 Balance 118 118 Intake: Oral 118 118 Other: Voiding Method Bedside Commode # Voids 1 2 - Exam GENERAL DESCRIPTION: An elderly female lying in bed in no distress RESPIRATORY SYSTEM: Unlabored breathing , decreased breath sounds at bases HEART: S1 S2 regular rate and rhythm , ABDOMEN: Soft , no tenderness EXTREMITIES: No edema feet - Labs CBC & Chem 7: 02/23/23 04:16 02/23/23 04:16 Labs: Abnormal Lab Results - Last 24 Hours (Table) 02/23/23 02/23/23 02/23/23 Range/Units 04:16 04:16 04:16 WBC 20.80 H (4.50-10.00) X 10*3/uL RBC 3.72 L (4.10-5.20) X 10*6/uL Hgb 10.6 L (12.0-15.0) g/dL Hct 33.3 L (37.2-46.3) % MCHC 31.8 L (32.0-37.0) g/dL Plt Count 772 H (140-440) X 10*3/uL Immature Gran # 0.28 H (0.00-0.04) X 10*3/uL Neutrophils # 17.97 H (1.80-7.70) X 10*3/uL Monocytes # 1.28 H (0.20-1.00) X 10*3/uL Anion Gap 14.10 H (4.00-12.00) mmol/L BUN 5.4 L (9.0-27.0) mg/dL Creatinine 0.3 L (0.6-1.5) mg/dL Total Bilirubin <0.2 L (0.3-1.2) mg/dL Alkaline Phosphatase 133 H (41-126) U/L C-Reactive Protein 30.50 H (0.00-0.80) mg/dL Total Protein 5.3 L (6.2-8.2) g/dL Albumin 2.8 L (3.8-4.9) g/dL Albumin/Globulin Ratio 1.12 L (1.60-3.17) Ratio Procalcitonin 1.53 H (0.02-0.09) ng/mL Microbiology - Last 24 Hours (Table) 02/20/23 17:15 Blood Culture - Preliminary Blood 02/20/23 17:00 Blood Culture - Preliminary Blood 02/21/23 15:21 Acid Fast Bacilli Smear - Preliminary Pleural Fluid 02/21/23 15:21 Gram Stain - Preliminary Pleural Fluid Body Fluid Culture - Preliminary Assessment and Plan (1) Leukocytosis Current Visit: Yes Status: Acute Code(s): D72.829 - ELEVATED WHITE BLOOD CELL COUNT, UNSPECIFIED SNOMED Code(s): 680821374 (2) Pleural effusion on left Current Visit: Yes Status: Acute Code(s): J90 - PLEURAL EFFUSION, NOT ELSEWHERE CLASSIFIED SNOMED Code(s): 94164035 Plan: 1patient was in the hospital with left-sided chest pain increasing shortness of breath and this patient noticed to have a significant effusion to the left lower chest and evidence of compressive atelectasis versus consolidation patient did have elevated white count but not running any fever and no significant cough or sputum production high clinical suspicion for possible malignancy underlying pneumonia and parapneumonic effusion less likely but not entirely excluded 2the patient status post thoracocentesis fluid did have a elevated white count mostly PMN with a cultures currently pending, The patient is scheduled for IR thoracocentesis left side this afternoon. 3patient to continue with Rocephin while waiting for the culture to finalize and monitor clinical course closely Dictation was produced using [employer] dictation software. please excuse any grammatical, word or spelling errors.
[2023-02-23] MEDS: SODIUM CHLORIDE 0.9% 1,000 ML IV SCH (16:59)
[2023-02-24] MEDS: HYDROmorphone 1 MG/ML 1 ML SYRINGE IVP PRN ×5 (02:53→20:33)
[2023-02-24 08:44] LABS: Basophils # (A) 0.06 X 10*3/uL (0.00-0.10); Basophils % (A) 0.4 %; Eosinophils # (A) 0.14 X 10*3/uL (0.04-0.35); Eosinophils % (A) 0.8 %; HCT 33.2 % (37.2-46.3); HGB 10.6 g/dL (12.0-15.0); Lymphocytes % (A) 10.1 %; MCH 28.7 pg (27.0-32.0); MCHC 31.9 g/dL (32.0-37.0); Mean Platelet Volume 10.1 FL (9.5-12.2); Monocytes # (A) 1.26 X 10*3/uL (0.20-1.00); Monocytes % (A) 7.5 %; NRBC Per 100 WBC 0 X 10*3/uL (0.00-0.01); Neutrophils # (A) 13.28 X 10*3/uL (1.80-7.70); Neutrophils % (A) 78.9 %; Platelet Count 682 X 10*3/uL (140-440); RBC 3.69 X 10*6/uL (4.10-5.20); RDW 13.7 % (11.5-14.5); WBC 16.82 X 10*3/uL (4.50-10.00)
[2023-02-24 08:54] LABS: BUN/Creat Ratio 12.67 Ratio (12.00-20.00); Blood Urea Nitrogen 3.8 mg/dL (9.0-27.0); Carbon Dioxide 28.2 mmol/L (21.6-31.8); Chloride 99 mmol/L (96-109); Glucose 107 mg/dL (70-110); Sodium 139 mmol/L (135-145)
[2023-02-24 08:55] LABS: ALT 10 U/L (8-44); AST 18 U/L (13-35); Albumin 2.7 g/dL (3.8-4.9); Albumin/Globulin Ratio 1.08 Ratio (1.60-3.17); Alkaline Phosphatase 131 U/L (41-126); Calcium 8.6 mg/dL (8.7-10.3); Globulin 2.5 g/dL (1.6-3.3); Total Bilirubin <0.2 mg/dL (0.3-1.2); Total Protein 5.2 g/dL (6.2-8.2)
--- NOTE | 2023-02-24 14:31 | P.PN ---
Subjective Progress Note Date: 02/24/23 patient 78-year-old lady with no significant past medical history was brought to the ER for left sided flank/back pain. Patient stated that she was all right 2-3 weeks back when he started noticing discomfort in the left flank region, there is also discomfort in the left side of her back. Patient initially thought that she might have pulled her muscle while getting out of the car. This discomfort was persistent. Patient also started noticing shortness of breath and was unable to take deep breaths. There was no complain of fever or chills. Patient denied any complaint of orthopnea or PND. There was no complain of swelling of feet. Patient denies any complaints of lethargy or weakness. Because of these symptoms, patient came to the ER Initial lab work done in the ER showed WBC 10.9, hemoglobin 13.2, platelet count 767, sodium 136, potassium 3.8, chloride 96, BUN 18, creatinine 0.41 glucose 110 AST 23, AST 16, UA done showed negative nitrite and leukocyte Estrace, urine WBC 6 EKG done in the ER showed heart rate of , no ST segment elevation or depression seen, no T-wave inversions seen. X-ray abdominal negative for evidence of free air or bowel obstruction Chest x-ray done in the ER showed extensive abnormal pleural parenchymal opacities throughout the left hemithorax probable loculated complex moderate sided pleural effusion. CTA chest done showed no PE, large left-sided pleural effusion. CT abdomen done showed nonspecific 2 cm right adrenal nodule. Indeterminate 9 mm cortical lesion left kidney could reflect a cyst versus mass Patient admitted to internal medicine service 02/23. Patient seen and examined. Status post thoracentesis on 02/21 on left side with removal of 1.2 L of fluid,. States she feels much better. Back pain has improved. Able to take deeper breaths. IR has been consulted for further thoracentesis of left side 02/24. Patient seen and examined. Labs done this morning showed WBC 16.82, hemoglobin 10.6, platelet count 62, sodium 139, potassium 4, BUN 3.8, creatinine 0.3. Patient underwent ultrasound-guided thoracentesis of left-sided removal of left 100cc of straw-colored fluid. States she feels much better. Still has leukocytosis. REVIEW OF SYSTEMS: CONSTITUTIONAL: No fever, no malaise,. CARDIOVASCULAR: No chest pain, no palpitations, no syncope. PULMONARY: As mentioned above GASTROINTESTINAL: No diarrhea, no nausea, no vomiting, no abdominal pain. NEUROLOGICAL: No headaches, no weakness, PHYSICAL EXAMINATION: GENERAL: The patient is alert and oriented x3, not in any acute distress. Well developed, well nourished. HEENT: Pupils are round and equally reacting to light. EOMI. No scleral icterus. No conjunctival pallor. Normocephalic, atraumatic. No pharyngeal erythema. No thyromegaly. CARDIOVASCULAR: S1 and S2 present. No murmurs, rubs, or gallops. PULMONARY: Diminished breath sounds at the left lung base, occasional crackles audible left-sided ABDOMEN: Soft, nontender, nondistended, normoactive bowel sounds. No palpable organomegaly. MUSCULOSKELETAL: No joint swelling or deformity. EXTREMITIES: No cyanosis, clubbing, or pedal edema. NEUROLOGICAL: Gross neurological examination did not reveal any focal deficits. SKIN: No rashes. Assessment and plan Bacterial pneumonia Empyema Left parapneumonic effusion 2 cm right adrenal nodule Indeterminate 9 mm cortical lesion left kidney Monitor vital signs Monitor CBC Monitor CMP Continue telemetry monitoring Follow-up on blood cultures Follow-up on sputum cultures Continue IV Rocephin , completed course of azithromycin status post thoracentesis of left side the removal of 1.2 L of fluid, on 02/21 per pulmonary Patient underwent ultrasound-guided thoracentesis of left-sided removal of left 100cc of straw-colored fluid on 02/23 ID following Pulmonology following Re: 2 cm right adrenal nodule needs outpatient six-month follow-up Re: Indeterminate 9 mm cortical lesion left kidney needs outpatient six-month follow-up Labs and medication were reviewed.. Continue same treatment. Continue with symptomatic treatment. Resume home medication. Monitor labs and vitals. DVT and GI prophylaxis. Further recommendations as per clinical course of the patient Dictation was produced using [employer] dictation software. please excuse any grammatical, word or spelling errors. Objective - Vital Signs Vital signs: Vital Signs Temp 98.2 F 02/24/23 07:00 Pulse 80 02/24/23 07:00 Resp 19 02/24/23 07:00 BP 142/72 02/24/23 07:00 Pulse Ox 96 02/24/23 02:00 FiO2 Intake & Output 02/23/23 02/24/23 02/24/23 18:59 06:59 18:59 Intake Total 236 118 Balance 236 118 Intake: Oral 236 118 Other: Voiding Method Bedside Commode Bedside Commode # Voids 3 3 - Labs CBC & Chem 7: 02/24/23 06:00 02/24/23 06:00 Labs: Abnormal Lab Results - Last 24 Hours (Table) 02/23/23 02/24/23 02/24/23 Range/Units 04:16 06:00 06:00 WBC 20.80 H 16.82 H (4.50-10.00) X 10*3/uL RBC 3.72 L 3.69 L (4.10-5.20) X 10*6/uL Hgb 10.6 L 10.6 L (12.0-15.0) g/dL Hct 33.3 L 33.2 L (37.2-46.3) % MCHC 31.8 L 31.9 L (32.0-37.0) g/dL Plt Count 772 H 682 H (140-440) X 10*3/uL Immature Gran # 0.28 H 0.38 H (0.00-0.04) X 10*3/uL Neutrophils # 17.97 H 13.28 H (1.80-7.70) X 10*3/uL Monocytes # 1.28 H 1.26 H (0.20-1.00) X 10*3/uL BUN 3.8 L (9.0-27.0) mg/dL Creatinine 0.3 L (0.6-1.5) mg/dL Calcium 8.6 L (8.7-10.3) mg/dL Total Bilirubin <0.2 L (0.3-1.2) mg/dL Alkaline Phosphatase 131 H (41-126) U/L Total Protein 5.2 L (6.2-8.2) g/dL Albumin 2.7 L (3.8-4.9) g/dL Albumin/Globulin Ratio 1.08 L (1.60-3.17) Ratio Microbiology - Last 24 Hours (Table) 02/20/23 17:15 Blood Culture - Preliminary Blood 02/20/23 17:00 Blood Culture - Preliminary Blood 02/21/23 15:21 Gram Stain - Preliminary Pleural Fluid Body Fluid Culture - Preliminary
[2023-02-24] MEDS: SODIUM CHLORIDE 0.9% 1,000 ML IV SCH (16:25)
--- NOTE | 2023-02-24 19:53 | P.PN ---
Subjective Progress Note Date: 02/24/23 Pleasant 68-year-old female patient, coming in with pain across her left chest and some shortness of breath. This started approximately 1 weeks ago. The patient was having significant amount of pain in her left lung especially when taking deep breaths, and the patient was taken anti-inflammatory medications and she was putting heat pads which wasn't relieving her pain. Ultimately, improving got severe and she decided to come into the hospital for further evaluation. She has no active fever. She has some sweats at nighttime and her appetite is been poor. No hemoptysis. No aspiration. No previous episodes of pneumonia. She isn't on off cigarette smoker and currently she is smoking approximately 1 pack of cigarettes a week. Prior to that she was smoking 2 packs a week and she quit approximately 20 years ago. Subsequently, she has been in a closet smoker. No nausea. No emesis. No abdominal pain. No altered mentation. No fall. No trauma to her chest.D-dimer is at 3.66, sodium is at 136, potassium levels at 3.8, BUN is at 80 with a creatinine of 0.4, the white cell count is 39 with a hemoglobin of 13.2. Legionella urine antigen is negative. Blood cultures are still pending for now. Computed tomography scan of the chest was done and the patient was found to have a large left-sided pleural effusion with complete lobar collapse of the left lower lobe and partial collapse of the lingular segment. This is a complex effusion with some loculation apically. There was background emphysema also. No evidence of any pulmonary embolism. The contrast administration was suboptimal and limited evaluation due to motion. CAT scan of the abdomen and pelvis was also done that showed a nonspecific 2 cm right adrenal nodule. 9 mm cortical lesion in the left kidney, sigmoid diverticulosis and fibroid uterus. On today's evaluation of 02/22/2023, the patient is much improved compared to yesterday. I performed a thoracentesis on her yesterday and I removed approximately 1.1 L of turbid cloudy fluid from the left lung. The patient's fluid is an exudate with elevated protein and elevated LDH. Is accompanied. Parapneumonic effusion. Fluid cytology still pending for now. Currently the patient is improved. At follow-up CAT scan of the chest was obtained and the patient shows interval decrease in left-sided pleural effusion. There is some residual left-sided pleural effusion and the left lung base which is somewhat operated and the patient may benefit from ultrasound-guided thoracentesis. As such, interventional radiology will be consulted. Clinically over the patient is improved. The patient continues to have some atelectatic changes in the left lung along with consolidation and the patient remains on broad-spectrum antibiotics. Follow up labs are still pending. Pleural fluid cultures also pending. On today's evaluation of 02/15/2023, the patient is doing extremely well. As mentioned, there is a residual left-sided pleural effusion ultrasound marking was done and the patient is going to undergo an ultrasound-guided thoracentesis by interventional radiology today. Cultures from the pleural fluid was negative. The patient white cell count is down to 20.8. Hemoglobin is at 10.6. Electrodes are within normal limits and normal renal function. Pro-calcitonin level is at 1.53. She has no other new complaints patient remains on oxygen 2 L/m nasal cannula. She is afebrile and she is also hemodynamically stable. On today's evaluation of 02/24/2023, the patient is feeling better. Her white cell count is gradually improving and is currently down to 16. Interventional radiology attempted a thoracentesis and there were able to drain approximately 100 mL of pleural fluid. Repeat chest x-ray showed volume loss and the residual pleural effusion on the left. Based on that, I performed another bedside thoracentesis on this patient and I was able to drain another 180 mL of fluid from the left chest. A follow-up chest x-ray to be done tomorrow. Meanwhile, the patient remains on broad-spectrum antibiotics. She has no specific compl aints. All of the cultures are negative. The white cell count of 16.8 with hemoglobin of 10.6 and a platelet count of 682. The BUN is at 8 with a creatinine of 0.3. She is currently on 2 L of oxygen by nasal cannula with a pulse ox of 93-94% no fever. No chills. No hemodynamic instability. On room air oxygen, pulse ox is around 91%. Objective - Vital Signs Vital signs: Vital Signs Temp 98.1 F 02/24/23 14:00 Pulse 93 02/24/23 14:00 Resp 19 02/24/23 14:00 BP 114/64 02/24/23 14:00 Pulse Ox 91 L 02/24/23 14:00 FiO2 Intake & Output 02/24/23 02/24/23 02/25/23 06:59 18:59 06:59 Intake Total 236 Balance 236 Intake: Oral 236 Other: Voiding Method Bedside Commode # Voids 3 2 - Exam Gen. appearance the patient is calm and comfortable not in acute distress she is currently on oxygen at 2 L Head exam was generally normal. There was no scleral icterus or corneal arcus. Mucous membranes were moist. Neck was supple and without jugular venous distension, thyromegaly, or carotid bruits. Carotids were easily palpable bilaterally. There was no adenopathy. Lungs sounds are diminished in the right and absent on the left with dullness to percussion consistent with lower effusion, and breath sounds are improved following thoracentesis was performed earlier. Cardiac exam revealed the PMI to be normally situated and sized. The rhythm was regular and no extrasystoles were noted during several minutes of auscultation. The first and second heart sounds were normal and physiologic splitting of the second heart sound was noted. There were no murmurs, rubs, clicks, or gallops. Abdominal exam revealed normal bowel sounds. The abdomen was soft, non-tender, and without masses, organomegaly, or appreciable enlargement of the abdominal aorta. Examination of the extremities revealed easily palpable radial, femoral and pedal pulses. There was no cyanosis, clubbing or edema. Examination of the skin revealed no evidence of significant rashes, suspicious appearing nevi or other concerning lesions. Neurologically, the patient is awake and alert and the patient does not have any focal neurological deficit. Cranial nerves are essentially intact. - Labs CBC & Chem 7: 02/24/23 06:00 02/24/23 06:00 Labs: Abnormal Lab Results - Last 24 Hours (Table) 02/24/23 02/24/23 Range/Units 06:00 06:00 WBC 16.82 H (4.50-10.00) X 10*3/uL RBC 3.69 L (4.10-5.20) X 10*6/uL Hgb 10.6 L (12.0-15.0) g/dL Hct 33.2 L (37.2-46.3) % MCHC 31.9 L (32.0-37.0) g/dL Plt Count 682 H (140-440) X 10*3/uL Immature Gran # 0.38 H (0.00-0.04) X 10*3/uL Neutrophils # 13.28 H (1.80-7.70) X 10*3/uL Monocytes # 1.26 H (0.20-1.00) X 10*3/uL BUN 3.8 L (9.0-27.0) mg/dL Creatinine 0.3 L (0.6-1.5) mg/dL Calcium 8.6 L (8.7-10.3) mg/dL Total Bilirubin <0.2 L (0.3-1.2) mg/dL Alkaline Phosphatase 131 H (41-126) U/L Total Protein 5.2 L (6.2-8.2) g/dL Albumin 2.7 L (3.8-4.9) g/dL Albumin/Globulin Ratio 1.08 L (1.60-3.17) Ratio Microbiology - Last 24 Hours (Table) 02/21/23 15:21 Gram Stain - Preliminary Pleural Fluid Body Fluid Culture - Preliminary 02/20/23 17:15 Blood Culture - Preliminary Blood 02/20/23 17:00 Blood Culture - Preliminary Blood Assessment and Plan Plan: Large left-sided pleural effusion, complex with some cardiac ablation, likely parapneumonic in nature, post thoracentesis with evacuation of 1.1 L of turbid exudate on the left lung, fluid cytology and cultures are still pending. Follow-up Of the Chest Shows Residual Pockets of Left-Sided Pleural Effusion Largest in the Left Lung Base. Patient Continues to Have Consolidation/Atelectasis of the Left Lung. Ultrasound marking of the residual pleural fluid was done and the patient had a second thoracentesis so interventional radiology with a total of 100 mL of fluid was aspirated. I performed another thoracentesis at the bedside today and another 180 mL of fluid was aspirated. Clinically stable. Left lung pneumonia clinically suspected with development of parapneumonic effusion, likely bacterial, pro-calcitonin level was elevated Acute hypoxic respiratory failure currently on 2 L Chest pain secondary to above, improved Shortness of breath secondary to above Acute hypoxic respiratory failure secondary to above currently on 2 L of oxygen by nasal cannula Leukocytosis secondary to above, improving COPD History of smoking Diverticulosis Adrenal nodule, 2 cm, likely benign Plan Is stable and improving White cell count is improving Obtain a follow-up chest CT in the morning Continue the current antibiotic coverage I do not see any immediate need for a surgical evaluation of this patient. Oxygenation is stable. The white cell count is improving. No active shortness of breath or pleurisy May be able to manage conservatively. Final decision will be done based on a repeat CAT scan of the chest was done in the morning. Cultures are all negative for the time being We'll continue to follow
[2023-02-25] MEDS: HYDROmorphone 1 MG/ML 1 ML SYRINGE IVP PRN ×2 (02:57→08:37)
[2023-02-25 08:51] VITALS: BP 147/64; PULSE 89; RESP 17; TEMP 98.1
[2023-02-25 12:01] LABS: Basophils # (A) 0.1 k/uL (0-0.2); Basophils % (A) 0 %; Eosinophils # (A) 0.1 k/uL (0-0.7); Eosinophils % (A) 1 %; HCT 36.5 % (34.0-46.0); HGB 11.4 gm/dL (11.4-16.0); Hypochromasia Slight; Lymphocytes # (A) 1.5 k/uL (1.0-4.8); Lymphocytes % (A) 8 %; MCH 28.4 pg (25.0-35.0); MCHC 31.2 g/dL (31.0-37.0); Mean Platelet Volume 7.7; Monocytes # (A) 0.8 k/uL (0-1.0); Monocytes % (A) 4 %; Neutrophils # (A) 16.7 k/uL (1.3-7.7); Neutrophils % (A) 87 %; Platelet Count 892 k/uL (150-450); RBC 4.01 m/uL (3.80-5.40); RDW 13.3 % (11.5-15.5); WBC 19.3 k/uL (3.8-10.6)
--- NOTE | 2023-02-25 13:17 | P.DS ---
Providers Date of admission: 02/22/23 07:27 Expected date of discharge: 02/25/23 Attending physician: David Le MD Consults: 02/20/23 16:30 Consult Physician Routine Consulting Provider: Jose L Buenrostro Consult Reason/Comments: Large left effusion Do you want consulting provider notified?: Yes 02/21/23 10:00 Consult Physician Routine Consulting Provider: Lanny Vang Consult Reason/Comments: Pneumonia, loculated pleural effusion Do you want consulting provider notified?: Yes Primary care physician: Stated None Hospital Course: Discharge diagnoses; Bacterial pneumonia Empyema Left parapneumonic effusion 2 cm right adrenal nodule Indeterminate 9 mm cortical lesion left kidney Hospital course; patient 78-year-old lady with no significant past medical history was brought to the ER for left sided flank/back pain. Patient stated that she was all right 2- 3 weeks back when he started noticing discomfort in the left flank region, there is also discomfort in the left side of her back. Patient initially thought that she might have pulled her muscle while getting out of the car. This discomfort was persistent. Patient also started noticing shortness of breath and was unable to take deep breaths. There was no complain of fever or chills. Patient denied any complaint of orthopnea or PND. There was no complain of swelling of feet. Patient denies any complaints of lethargy or weakness. Because of these symptoms, patient came to the ER Initial lab work done in the ER showed WBC 10.9, hemoglobin 13.2, platelet count 767, sodium 136, potassium 3.8, chloride 96, BUN 18, creatinine 0.41 glucose 110 AST 23, AST 16, UA done showed negative nitrite and leukocyte Estrace, urine WBC 6 EKG done in the ER showed heart rate of , no ST segment elevation or depression seen, no T-wave inversions seen. X-ray abdominal negative for evidence of free air or bowel obstruction Chest x-ray done in the ER showed extensive abnormal pleural parenchymal opacities throughout the left hemithorax probable loculated complex moderate sided pleural effusion. CTA chest done showed no PE, large left-sided pleural effusion. CT abdomen done showed nonspecific 2 cm right adrenal nodule. Indeterminate 9 mm cortical lesion left kidney could reflect a cyst versus mass Patient admitted to internal medicine service 02/23. Patient seen and examined. Status post thoracentesis on 02/21 on left side with removal of 1.2 L of fluid,. States she feels much better. Back pain has improved. Able to take deeper breaths. IR has been consulted for further thoracentesis of left side 02/24. Patient seen and examined. Labs done this morning showed WBC 16.82, hemoglobin 10.6, platelet count 62, sodium 139, potassium 4, BUN 3.8, creatinine 0.3. Patient underwent ultrasound-guided thoracentesis of left-sided removal of left 100cc of straw-colored fluid. States she feels much better. Still has leukocytosis. 02/25. Patient seen and examined. Patient had another thoracentesis done by pulmonology at bedside with removal of 180 mL of fluid. ID recommended discharging patient on oral Augmentin for 2 weeks. Outpatient follow-up with pulmonary PHYSICAL EXAMINATION: GENERAL: The patient is alert and oriented x3, not in any acute distress. Well developed, well nourished. HEENT: Pupils are round and equally reacting to light. EOMI. No scleral icterus. No conjunctival pallor. Normocephalic, atraumatic. No pharyngeal erythema. No thyromegaly. CARDIOVASCULAR: S1 and S2 present. No murmurs, rubs, or gallops. PULMONARY: Diminished breath sounds at the left lung base, occasional crackles audible left-sided ABDOMEN: Soft, nontender, nondistended, normoactive bowel sounds. No palpable organomegaly. MUSCULOSKELETAL: No joint swelling or deformity. EXTREMITIES: No cyanosis, clubbing, or pedal edema. NEUROLOGICAL: Gross neurological examination did not reveal any focal deficits. SKIN: No rashes. Dictation was produced using [employer] dictation software. please excuse any grammatical, word or spelling errors. Patient Condition at Discharge: Good Plan - Discharge Summary New Discharge Prescriptions: New Amoxic-Pot Clav 875-125Mg [Augmentin 875-125] 1 tab PO Q12HR 14 Days #28 tab Discharge Medication List Amoxic-Pot Clav 875-125Mg [Augmentin 875-125] 1 tab PO Q12HR 14 Days #28 tab 02/25/23 [Rx] Follow up Appointment(s)/Referral(s): None,Stated [Primary Care Provider] - 1-2 days Lanny Vang MD [STAFF PHYSICIAN] - 1 Week Radha Byers MD [STAFF PHYSICIAN] - 1 Week Discharge Disposition: HOME SELF-CARE
--- NOTE | 2023-02-25 13:18 | P.PN ---
Subjective Progress Note Date: 02/24/23 Principal diagnosis: Reason for follow-up is left-sided effusion elevated white count Patient is a 68-year female presented to hospital with increasing shortness of breath and left-sided chest pain noticed to have a large left-sided effusion status post thoracocentesis also have elevated white count. On today's evaluation that is 02/24/2023, the patient continues to be afebrile the patient is breathing comfortably on 2 L nasal cannula oxygen, the patient left-sided chest pain has decreased in intensity patient denies having any worsening cough or sputum production no abdominal pain and no diarrhea. Patient white count is down to 16.82, creatinine 0.3 procalcitonin is 1.53 cultures are currently pending Objective - Vital Signs Vital signs: Vital Signs Temp 98.2 F 02/24/23 07:00 Pulse 78 02/24/23 11:59 Resp 19 02/24/23 07:00 BP 142/72 02/24/23 07:00 Pulse Ox 93 L 02/24/23 11:59 FiO2 Intake & Output 02/23/23 02/24/23 02/24/23 18:59 06:59 18:59 Intake Total 236 118 Balance 236 118 Intake: Oral 236 118 Other: Voiding Method Bedside Commode Bedside Commode # Voids 3 3 - Exam GENERAL DESCRIPTION: An elderly female lying in bed in no distress RESPIRATORY SYSTEM: Unlabored breathing , decreased breath sounds at bases HEART: S1 S2 regular rate and rhythm , ABDOMEN: Soft , no tenderness EXTREMITIES: No edema feet - Labs CBC & Chem 7: 02/25/23 11:35 02/24/23 06:00 Labs: Abnormal Lab Results - Last 24 Hours (Table) 02/24/23 02/24/23 Range/Units 06:00 06:00 WBC 16.82 H (4.50-10.00) X 10*3/uL RBC 3.69 L (4.10-5.20) X 10*6/uL Hgb 10.6 L (12.0-15.0) g/dL Hct 33.2 L (37.2-46.3) % MCHC 31.9 L (32.0-37.0) g/dL Plt Count 682 H (140-440) X 10*3/uL Immature Gran # 0.38 H (0.00-0.04) X 10*3/uL Neutrophils # 13.28 H (1.80-7.70) X 10*3/uL Monocytes # 1.26 H (0.20-1.00) X 10*3/uL BUN 3.8 L (9.0-27.0) mg/dL Creatinine 0.3 L (0.6-1.5) mg/dL Calcium 8.6 L (8.7-10.3) mg/dL Total Bilirubin <0.2 L (0.3-1.2) mg/dL Alkaline Phosphatase 131 H (41-126) U/L Total Protein 5.2 L (6.2-8.2) g/dL Albumin 2.7 L (3.8-4.9) g/dL Albumin/Globulin Ratio 1.08 L (1.60-3.17) Ratio Microbiology - Last 24 Hours (Table) 02/20/23 17:15 Blood Culture - Preliminary Blood 02/20/23 17:00 Blood Culture - Preliminary Blood 02/21/23 15:21 Gram Stain - Preliminary Pleural Fluid Body Fluid Culture - Preliminary Assessment and Plan (1) Leukocytosis Current Visit: Yes Status: Acute Code(s): D72.829 - ELEVATED WHITE BLOOD CELL COUNT, UNSPECIFIED SNOMED Code(s): 608626149 (2) Pleural effusion on left Current Visit: Yes Status: Acute Code(s): J90 - PLEURAL EFFUSION, NOT ELSEWHERE CLASSIFIED SNOMED Code(s): 81223846 Plan: 1patient was in the hospital with left-sided chest pain increasing shortness of breath and this patient noticed to have a significant effusion to the left lower chest and evidence of compressive atelectasis versus consolidation patient did have elevated white count but not running any fever and no significant cough or sputum production high clinical suspicion for possible malignancy underlying pneumonia and parapneumonic effusion less likely but not entirely excluded 2the patient status post thoracocentesis fluid did have a elevated white count mostly PMN with a cultures currently pending, The patient is S/p IR thoracocentesis completed on 02/23/2023. 3patient to continue with Rocephin while waiting for the culture to finalize to determine discharge antibiotics and monitor clinical course closely Dictation was produced using [employer] software. please excuse any grammatical, word or spelling errors.
--- NOTE | 2023-02-25 13:21 | P.PN ---
Subjective Progress Note Date: 02/25/23 Principal diagnosis: Reason for follow-up is left-sided effusion elevated white count Patient is a 68-year female presented to hospital with increasing shortness of breath and left-sided chest pain noticed to have a large left-sided effusion status post thoracocentesis also have elevated white count. On today's evaluation that is 02/25/2023, the patient denies having any fever or any chills the patient is breathing comfortably on room air without the need for supplemental oxygen, the patient left-sided chest pain has decreased in intensity, the patient cough has decreased in intensity mostly dry nature no nausea vomiting no abdominal pain and no diarrhea Patient white count is slightly up to 19.3 today, creatinine 0.3 procalcitonin is 1.53 cultures are currently pending Objective - Vital Signs Vital signs: Vital Signs Temp 98.1 F 02/25/23 07:50 Pulse 89 02/25/23 07:50 Resp 17 02/25/23 07:50 BP 147/64 02/25/23 07:50 Pulse Ox 92 L 02/25/23 07:50 FiO2 Intake & Output 02/24/23 02/25/23 02/25/23 18:59 06:59 18:59 Intake Total 236 Balance 236 Intake: Oral 236 Other: # Voids 2 2 - Exam GENERAL DESCRIPTION: An elderly female lying in bed in no distress RESPIRATORY SYSTEM: Unlabored breathing , decreased breath sounds at bases HEART: S1 S2 regular rate and rhythm , ABDOMEN: Soft , no tenderness EXTREMITIES: No edema feet - Labs CBC & Chem 7: 02/25/23 11:35 02/24/23 06:00 Labs: Microbiology - Last 24 Hours (Table) 02/21/23 15:21 Gram Stain - Preliminary Pleural Fluid Body Fluid Culture - Preliminary Assessment and Plan (1) Leukocytosis Current Visit: Yes Status: Acute Code(s): D72.829 - ELEVATED WHITE BLOOD CELL COUNT, UNSPECIFIED SNOMED Code(s): 549879299 (2) Pleural effusion on left Current Visit: Yes Status: Acute Code(s): J90 - PLEURAL EFFUSION, NOT ELSEWHERE CLASSIFIED SNOMED Code(s): 61289755 Plan: 1patient was in the hospital with left-sided chest pain increasing shortness of breath and this patient noticed to have a significant effusion to the left lower chest and evidence of compressive atelectasis versus consolidation patient did have elevated white count but not running any fever and no significant cough or sputum production high clinical suspicion for possible malignancy underlying pneumonia and parapneumonic effusion less likely but not entirely excluded 2the patient status post thoracocentesis fluid did have a elevated white count mostly PMN with a cultures currently pending, The patient is S/p IR thoracocentesis completed on 02/23/2023. 3patient did have a CT of the chest completed this morning awaiting further recommendation from pulmonary continue with Rocephin and monitor clinical course closely Dictation was produced using [employer] dictation software. please excuse any g rammatical, word or spelling errors.
--- NOTE | 2023-02-25 13:22 | P.PN ---
Subjective Progress Note Date: 02/25/23 Pleasant 68-year-old female patient, coming in with pain across her left chest and some shortness of breath. This started approximately 1 weeks ago. The patient was having significant amount of pain in her left lung especially when taking deep breaths, and the patient was taken anti-inflammatory medications and she was putting heat pads which wasn't relieving her pain. Ultimately, improving got severe and she decided to come into the hospital for further evaluation. She has no active fever. She has some sweats at nighttime and her appetite is been poor. No hemoptysis. No aspiration. No previous episodes of pneumonia. She isn't on off cigarette smoker and currently she is smoking approximately 1 pack of cigarettes a week. Prior to that she was smoking 2 packs a week and she quit approximately 20 years ago. Subsequently, she has been in a closet smoker. No nausea. No emesis. No abdominal pain. No altered mentation. No fall. No trauma to her chest.D-dimer is at 3.66, sodium is at 136, potassium levels at 3.8, BUN is at 80 with a creatinine of 0.4, the white cell count is 39 with a hemoglobin of 13.2. Legionella urine antigen is negative. Blood cultures are still pending for now. Computed tomography scan of the chest was done and the patient was found to have a large left-sided pleural effusion with complete lobar collapse of the left lower lobe and partial collapse of the lingular segment. This is a complex effusion with some loculation apically. There was background emphysema also. No evidence of any pulmonary embolism. The contrast administration was suboptimal and limited evaluation due to motion. CAT scan of the abdomen and pelvis was also done that showed a nonspecific 2 cm right adrenal nodule. 9 mm cortical lesion in the left kidney, sigmoid diverticulosis and fibroid uterus. On today's evaluation of 02/22/2023, the patient is much improved compared to yesterday. I performed a thoracentesis on her yesterday and I removed approximately 1.1 L of turbid cloudy fluid from the left lung. The patient's fluid is an exudate with elevated protein and elevated LDH. Is accompanied. Parapneumonic effusion. Fluid cytology still pending for now. Currently the patient is improved. At follow-up CAT scan of the chest was obtained and the patient shows interval decrease in left-sided pleural effusion. There is some residual left-sided pleural effusion and the left lung base which is somewhat operated and the patient may benefit from ultrasound-guided thoracentesis. As such, interventional radiology will be consulted. Clinically over the patient is improved. The patient continues to have some atelectatic changes in the left lung along with consolidation and the patient remains on broad-spectrum antibiotics. Follow up labs are still pending. Pleural fluid cultures also pending. On today's evaluation of 02/15/2023, the patient is doing extremely well. As mentioned, there is a residual left-sided pleural effusion ultrasound marking was done and the patient is going to undergo an ultrasound-guided thoracentesis by interventional radiology today. Cultures from the pleural fluid was negative. The patient white cell count is down to 20.8. Hemoglobin is at 10.6. Electrodes are within normal limits and normal renal function. Pro-calcitonin level is at 1.53. She has no other new complaints patient remains on oxygen 2 L/m nasal cannula. She is afebrile and she is also hemodynamically stable. On today's evaluation of 02/24/2023, the patient is feeling better. Her white cell count is gradually improving and is currently down to 16. Interventional radiology attempted a thoracentesis and there were able to drain approximately 100 mL of pleural fluid. Repeat chest x-ray showed volume loss and the residual pleural effusion on the left. Based on that, I performed another bedside thoracentesis on this patient and I was able to drain another 180 mL of fluid from the left chest. A follow-up chest x-ray to be done tomorrow. Meanwhile, the patient remains on broad-spectrum antibiotics. She has no specific compl aints. All of the cultures are negative. The white cell count of 16.8 with hemoglobin of 10.6 and a platelet count of 682. The BUN is at 8 with a creatinine of 0.3. She is currently on 2 L of oxygen by nasal cannula with a pulse ox of 93-94% no fever. No chills. No hemodynamic instability. On room air oxygen, pulse ox is around 91%. On today's evaluation of 02/25/2023, the patient is doing extremely well. No specific complaints. Oxygen stable. White cell count of 19.3. Several attempt s to drain the right-sided pleural effusion was done and some more fluid was obtained. Cultures are all negative. No need for any surgical intervention regarding the residual pleural effusion on the left. The patient will be treated medically. The patient will be discharged home on antibiotics. She is not toxic at all. She is awake and alert and she is not having any significant shortness of breath. Pulse ox on room air is above 92%. Objective - Vital Signs Vital signs: Vital Signs Temp 98.1 F 02/25/23 07:50 Pulse 89 02/25/23 07:50 Resp 17 02/25/23 08:00 BP 147/64 02/25/23 07:50 Pulse Ox 92 L 02/25/23 07:50 FiO2 Intake & Output 02/24/23 02/25/23 02/25/23 18:59 06:59 18:59 Intake Total 236 Balance 236 Intake: Oral 236 Other: Voiding Method Bedside Commode # Voids 2 2 - Exam Gen. appearance the patient is calm and comfortable not in acute distress she is currently on oxygen at 2 L Head exam was generally normal. There was no scleral icterus or corneal arcus. Mucous membranes were moist. Neck was supple and without jugular venous distension, thyromegaly, or carotid bruits. Carotids were easily palpable bilaterally. There was no adenopathy. Lungs sounds are diminished in the right and absent on the left with dullness to percussion consistent with lower effusion, and breath sounds are improved following thoracentesis was performed earlier. Cardiac exam revealed the PMI to be normally situated and sized. The rhythm was regular and no extrasystoles were noted during several minutes of auscultation. The first and second heart sounds were normal and physiologic splitting of the second heart sound was noted. There were no murmurs, rubs, clicks, or gallops. Abdominal exam revealed normal bowel sounds. The abdomen was soft, non-tender, and without masses, organomegaly, or appreciable enlargement of the abdominal aorta. Examination of the extremities revealed easily palpable radial, femoral and pedal pulses. There was no cyanosis, clubbing or edema. Examination of the skin revealed no evidence of significant rashes, suspicious appearing nevi or other concerning lesions. Neurologically, the patient is awake and alert and the patient does not have any focal neurological deficit. Cranial nerves are essentially intact. - Labs CBC & Chem 7: 02/25/23 11:35 02/24/23 06:00 Labs: Microbiology - Last 24 Hours (Table) 02/21/23 15:21 Gram Stain - Preliminary Pleural Fluid Body Fluid Culture - Preliminary Assessment and Plan Plan: Large left-sided pleural effusion, complex with some cardiac ablation, likely parapneumonic in nature, post thoracentesis with evacuation of 1.1 L of turbid exudate on the left lung, fluid cytology and cultures are still pending. Follow-up Of the Chest Shows Residual Pockets of Left-Sided Pleural Effusion Largest in the Left Lung Base. Patient Continues to Have Consolidation/A telectasis of the Left Lung. Ultrasound marking of the residual pleural fluid was done and the patient had a second thoracentesis so interventional radiology with a total of 100 mL of fluid was aspirated. I performed another thoracentesis at the bedside today and another 180 mL of fluid was aspirated. Clinically stable. Left lung pneumonia clinically suspected with development of parapneumonic effusion, likely bacterial, pro-calcitonin level was elevated Acute hypoxic respiratory failure currently on 2 L Chest pain secondary to above, improved Shortness of breath secondary to above Acute hypoxic respiratory failure secondary to above currently on 2 L of oxygen by nasal cannula Leukocytosis secondary to above, improving COPD History of smoking Diverticulosis Adrenal nodule, 2 cm, likely benign Plan Reviewed the follow-up CAT scan of the chest and acknowledged the fact that the patient has residual pleural effusion and atelectatic changes in her left lung. Nevertheless, she is nontoxic. No fever. Some mild leukocytosis still present although this is improved. Recommend discharging this patient home on oral Augmentin for at least 2 weeks and close short-term follow-up with me in the office. No need for any further drainage at this point. Interventional radiology is not available over the weekend. No need for surgical intervention specially with a stable condition We'll go with conservative management with antibiotics Will follow up on outpatient basis. Cultures are negative Currently on room air oxygen. White cell count to be further monitored on outpatient basis
[2023-02-25] MEDS ORDERED: ACETAMINOPHEN TAB 325 MG TAB PO STA (13:43)
--- NOTE | 2023-02-25 14:37 | CT ---
EXAMINATION TYPE: CT chest wo con CT DLP: 146.60 mGycm, Automated exposure control for dose reduction was used. DATE OF EXAM: 02/25/2023 7:18 AM COMPARISON: CT chest without contrast 02/22/2023 . CLINICAL INDICATION:Female, 68 years old with history of Loculated pleural effusion; PHH, Loculated p leural effusion TECHNIQUE: Multiple axial images were obtained through the chest. Sagittal and coronal reformats were created for review. Contrast used: mL of (None if empty) Oral contrast used: (None if empty) FINDINGS: Exam is limited without IV contrast. LOWER NECK: No significant findings. HEART AND VASCULATURE: Stable, mildly enlarged heart with moderate coronary artery calcifications and aortic calcification. Stable small pericardial effusion. Grossly stable unenhanced pulmonary arterie s, pulmonary trunk is not enlarged. AIRWAY: Central airways are patent. Again the more peripheral bronchial branches on the left taper in to the areas of consolidated lung. MEDIASTINUM: Unchanged with several nonenlarged nodes. LUNGS/ PLEURA: Moderate sized partially loculated left pleural effusion is redemonstrated. Overall th is appears decreased in size from the prior, especially the paramediastinal component, and the main c omponent layering posteriorly. Essentially stable loculated component along the lateral chest wall. S lightly increased loculated fluid along the superior end of the major fissure with a pseudotumor appe arance measuring 32 x 26 mm. There has been increase in the number of several small bubbles of gas wi thin the left pleural fluid, however remains a small volume. Persistent opacification of the majority of the left lower lobe with air bronchograms, without significant change. Some compressive atelectas is of the left upper lobe is essentially stable. Right lung shows improved aeration at the base with decreased opacity here likely due to improved atelectasis. There is mild residual linear atelectasis or scarring in the right lung base. Lungs otherwise stable with no evidence of new infiltrate, pleura l fluid collection, or pneumothorax. MUSCULOSKELETAL: Osseous structures appear unchanged. Mild degenerative changes throughout the visua lized spine. SOFT TISSUES: Unremarkable. UPPER ABDOMEN: No significant interval change. IMPRESSION: 1. Limited unenhanced study. 2. Moderate sized partially loculated left pleural effusion is redemonstrated. Overall this appears decreased in size, although some components are stable and there is slightly increased loculated flui d along the upper end of the major fissure. 3. Increased in number of several small bubbles of gas within the left pleural fluid, however remain s a small volume. This could be postprocedural if a recent thoracentesis has been performed. Another consideration is superimposed infection. 4. Persistent opacification of the majority of the left lower lobe, and lesser opacification of the left upper lobe, likely due to atelectasis with infection possible in the proper clinical setting. 5. Right lung shows improved aeration at its base with decreased opacity here likely due to improved atelectasis.
--- NOTE | 2023-03-03 10:45 | CDI ---
Documentation Clarification Form Date: 03/03/2023 09:58:12 AM From: Bozena Murillo RN, CCDS Email: [email or web address] Admit Date: 02/22/2023 07:27:00 AM Patient Name: Jenn Dennis Visit Number: [id number] Discharge Date: 02/25/2023 01:55:00 PM ATTENTION: The Clinical Documentation Specialists (CDI) and [facility] Coding Staff appreciate your assistance in clarifying documentation. Please respond to the clarification below the line at the bottom and electronically sign. The CDI & [facility] Coding staff will review the response and follow-up if needed. Please note: Queries are made part of the Legal Health Record. If you have any questions, please contact the author of this message via ITS. Dr. Sergo Clark The patient had bacterial pneumonia, an empyema, leukocytosis and tachycardia. Based on this information and the findings below, is there an additional diagnosis that is clinically appropriate for this patient? History/Risk Factors: no significant past medical history was brought to the ER for left sided flank and back pain. Found to have bacterial pneumonia and large left pleural effusion. Clinical Indicators: 02/20-02/25 WBC: 39.9-20.8-16.82-19.3 02/20-02/25 Neutrophils: 37.5-17.97-13.28-16.7 02/20 Lactic acid: 2.0 02/23 CRP: 30.50; Procalcitonin 1.53 Vitals signs: 02/20 HR 107; 02/21 HR 110; 02/21 RR 24; 02/20 pox 90% room air 02/22 Pulmonary: "Large left-sided pleural effusion, complex with some cardiac ablation, likely parapneumonic in nature, post thoracentesis with evacuation of 1.1 L of turbid exudate on the left lung; Left lung pneumonia clinically suspected with development of parapneumonic effusion, likely bacterial; Leukocytosis secondary to above." 02/25 Discharge summary: "Bacterial pneumonia; Empyema; Left parapneumonic effusion." Treatment: s/p thoracentesis on 02/21 of 1.2 L of turbid colored fluid removed. IV 0.9 NS @20mL/hr 02/20-02/25; Discharged home on oral Augmentin x2 weeks. 02/21 ID Consult: "significant effusion to the left lower chest and evidence of compressive atelectasis versus consolidation. Patient did have elevated white count." Antibiotics: IV Azithromycin 500mg x1 on 02/20; Azithromycin 500mg po daily 02/20-02/21; IV Rocephin 2gm x1 on 02/20; IV Rocephin 2gm Q24H 02/21-02/25; Is there an additional diagnosis that is clinically appropriate for this patient? [ x] Sepsis, present on admission [ ] No additional diagnosis [ ] Other, please specify [ ] Unable to determine SIRS Criteria: 2 or more of the following may indicate SIRS Temperature < 96.8F (36C) or > 101.0F (38.3C) Heart Rate > 90 bpm Respiratory Rate > 20 breaths/min or PaCO2 < 32 mmHg White Blood Cell Count > 12,000 or < 4,000 cells/mm3 or > 10% bands MTDD
== END 2023-02-25 13:55 | disposition home or self-care (01) | DRG 871 ==
LOC: EC 11:34 → 6NMEDSUR 16:32 → OBSVTOIN 02-22 07:27
PROVIDERS: ADMIT Internal Medicine; ATTEND Internal Medicine
DX: A41.9 Sepsis, unspecified organism (principal); J15.9 Unspecified bacterial pneumonia; J86.9 Pyothorax without fistula; J96.01 Acute respiratory failure with hypoxia; J44.0 Chronic obstructive pulmonary disease with (acute) lower respiratory infection; J91.8 Pleural effusion in other conditions classified elsewhere; J98.11 Atelectasis; K57.32 Diverticulitis of large intestine without perforation or abscess without bleeding; F17.210 Nicotine dependence, cigarettes, uncomplicated; D25.9 Leiomyoma of uterus, unspecified; E27.8 Other specified disorders of adrenal gland; N28.9 Disorder of kidney and ureter, unspecified; Z28.21 Immunization not carried out because of patient refusal
CPT/HCPCS: 32555; 36415; 71045; 71046; 71250; 71275; 74018; 74177; 76604; 80053; 81001; 82150; 82945; 83605; 83615; 83690; 84145; 84157; 84478; 85025; 85379; 85610; 85730; 86140; 87040; 87070; 87075; 87102; 87116; 87205; 87206; 87449; 88108; 88305; 89050; 94760; 96365; 96366; 96375; 96376; 99291